=== PATIENT | female | born 1985 | race Caucasian/White ===

== ENCOUNTER 2024-05-28 18:38 | Inpatient (IN) ==
--- OUTSIDE RECORDS SUMMARY | 2024-05-28 18:42 | External Medical Summary | Summary of Care ---
Author Name Unknown Organization [facility] Address [address] [place] [address] Phone [phone] Care Team Providers Care Inspector General Name Role Phone Manjit Dailey MD Primary Care Provider [phone] Reason for Visit * Reason Comments Eye Problem Sinus Problem Encounter Details Date Type Department Care Team (Latest Contact Info) Description 02/13/2024 5:30 PM EDT [facility] [place] [address] [id number] Jayda Andrea PA-C [address] [phone] Acute bacterial conjunctivitis of right eye*; Viral sinusitis Allergies Active Allergy Reactions Criticality Noted Date Comments Iodide Hives Medium 01/08/2011 Latex Itching Low 01/08/2011 Shellfish Allergy 12/06/2015 documented as of this encounter (statuses as of 02/13/2024) Medications Medication Sig Dispensed Refills Start Date End Date Status diazePAM 2 MG Oral Tablet (Valium) Take 1 Tablet by mouth every 8 hours as needed for Other (Dizziness). 8 Tablet 0 09/06/2023 Active Additional Information Patient not taking.Reported on 02/13/2024 Erythromycin 5 MG/GM Ophthalmic OintmentIndications:A cute bacterial conjunctivitis of right eye Instill into the right eye 4 times a day for 10 days. Apply to affected eye(s) until redness and discharge resolved. 3.5 g 0 02/13/2024 02/23/2024 Active predniSONE 20 MG Oral Tablet (Deltasone)Indication s:Viral sinusitis Take 1 Tablet by mouth in the morning for 5 days. 5 Tablet 0 02/13/2024 02/18/2024 Active documented as of this encounter (statuses as of 02/13/2024) Active Problems Problem Noted Date Diagnosed Date Food insecurity 05/26/2021 Overview: Per [facility] Protocol Migraine without aura and wi thout status migrainosus, not intractable 09/13/2018 Overview: 08/2018 no papilledema, Family history of malignant neoplasm of breast 0 07/08/2017 Family history of ovarian cancer 07/08/2017 Increased risk of breast cancer 07/08/2017 Vitamin D deficiency 09/24/2015 Hyperinsulinemia 09/24/2015 Obesity, Class III, BMI 40-49.9 (morbid obesity) 09/13/2015 History of iron deficiency anemia 09/13/2015 Overview: Hemoglobin Results: HGB(g/dL) Radha Dt/Tm Resulted Value Status 09/01/18 7:59P 09/01/18 12.6 FINAL 03/25/18 2:02A 03/25/18 11.5* FINAL 06/12/17 9:25A 06/12/17 11.4* FINAL PCOS (polycystic ovarian syndrome) 09/13/2015 History of menorrhagia 09/11/2015 Submucous leiomyoma of uterus 09/11/2015 documented as of this encounter (statuses as of 02/13/2024) Resolved Problems Problem Noted Date Diagnosed Date Resolved Date BMI 40.0-44.9, adult 2015 017 Overview: Per Obesity protocol #1 Antepartum anemia 02/13/2011 04/28/2011 Overview: ICD-10 update of inactive term Encounter for supervision of other normal 01/08/2011 04/28/2011 Overview: Transfer of care at 23 wk from [place] ICD-10 update of inactive term Previous delivery, antepartum condition or complication 01/08/2011 04/28/2011 Overview: Will probably be repeat documented as of this encounter (statuses as of 02/13/2024) Immunizations Name Administration Dates Next Due Seasonal Influenza, PF, 6 M & above, IM , (FluLaval or Fluzone) 09/07/2018 documented as of this encounter Social History Tobacco Use Types Packs/Day Years Used Date Smoking Tobacco: Never Smokeless Tobacco: Never Tobacco Cessation:Counseling Given: Not Answered Alcohol Use Standard Drinks/Week Comments No 0 (1 standard drink = 0.6 oz pur e alcohol) PHQ-2 Answer Date Recorded PHQ-2 Score 2 09/07/2018 Sex and Gender Information Value Date Recorded Sex Assigned at Not on file Gender Identity Not on file Sexual Orientation Not on file Job Start Date Occupation Industry Not on file Not on file Not on file documented as of this encounter Last Filed Vital Signs Vital Sign Reading Time Taken Comments Blood Pressure 112/68 02/13/2024 4:47 PM EDT Pulse 84 02/13/2024 4:47 PM EDT Temperature 37.5 C (99.5 F) 02/13/2024 4:47 PM ED T Respiratory Rate 18 02/13/2024 4:47 PM EDT Oxygen Saturation 98% 02/13/2024 4:47 PM EDT Inhaled Oxygen Concentration - - Weight 120.8 kg (266 lb 6.4 oz) 02/13/2024 4:47 PM EDT Height - - Body Mass Index 41.72 09/05/2023 8:30 PM EST documented in this encounter Patient Instructions * Patient Instructions* Jayda Andrea PA-C - 02/13/2024 4:53 PM EDT Apply erythromycin ophthalmic ointment four times daily for 7-10 days. Wash hands frequently, this is contagious. Wash and change pillow case multiple times this week. Take Prednisone 20 mg once daily for 5 days. Do not take in the evening. You can take Mucinex and Flonase over the counter. Return if you develop fever, worsening pain/redness/swelling, pain/redness/swelling around the eye. documented in this encounter Progress Notes * Jayda Andrea PA-C - 02/13/2024 4:49 PM EDT Images from the original note were not included. History of Present Illness Chief Complaint Patient presents with Eye Problem Sinus Problem 38 y/o female presents with congestion, runny nose, cough, right eye drainage that started this AM.Has tried OTC Izabel [place] cold and cough. Had a low grade fever today. Denies trauma or injury to eye. Woke up with eye crusted shut this AM. Wears glasses and occasionally wears contacts but has not worn contacts in weeks. Denies changes in vision, eye pain, photophobia, SOB, abd pain, N/V/D, LH,dizziness, or weakness. Past Medical History: Diagnosis Date Asthma, mild persistent Hyperinsulinemia 09/24/2015 Iron deficiency anemia 09/13/2015 Lupus ([facility]) 2016 Obesity, Class III, BMI 40-49.9 (morbid obesity) ([facility]) 09/13/2015 PCOS (polycystic ovarian syndrome) 09/13/2015 Submucous leiomyoma of uterus 09/11/2015 Vitamin D deficiency 09/24/2015 Current Medication List: diazePAM 2 MG Oral Tablet (Valium) Review of patient's allergies indicates: Allergen Reactions Iodide Hives Shellfish Allergy Latex Itching Review of Systems Constitutional: Positive for fever. Negative for chills. HENT: Positive for congestion and rhinorrhea. Eyes: Positive for discharge and redness. Negative for visual disturbance. Respiratory: Positive for cough. Negative for shortness of breath. Cardiovascular: Negative for chest pain. Gastrointestinal: Negative for abdominal pain, diarrhea, nausea and vomiting. Musculoskeletal: Negative for gait problem. Skin: Negative for rash. Neurological: Negative for weakness and headaches. Psychiatric/Behavioral: Negative for confusion. Physical Exam BP 112/68 | Pulse 84 | Temp 37.5 C (99.5 F) (Tympanic) | Resp 18 | Wt 120.8 kg (266 lb 6.4 oz) | LMP 02/12/2024 (Exact Date) | SpO2 98% | BMI 41.72 kg/m | BSA 2.39 m Physical Exam Vitals and nursing note reviewed. Constitutional: General: She is not in acute distress. Appearance: Normal appearance. She is not ill-appearing, toxic-appearing or diaphoretic. HENT: Head: Normocephalic and atraumatic. Right Ear: Ear canal normal. A middle ear effusion is present. Left Ear: Tympanic membrane and ear canal normal. Nose: Congestion and rhinorrhea present. Mouth/Throat: Mouth: Mucous membranes are moist. Pharynx: Oropharynx is clear. No oropharyngeal exudate or posterior oropharyngeal erythema. Eyes: General: Right eye: Discharge present. Extraocular Movements: Extraocular movements intact. Pupils: Pupils are equal, round, and reactive to light. Comments: Right conjunctival injection. No periorbital edema or erythema. No foreign body. Cardiovascular: Rate and Rhythm: Normal rate and regular rhythm. Pulmonary: Effort: Pulmonary effort is normal. No respiratory distress. Breath sounds: Normal breath sounds. No wheezing, rhonchi or rales. Musculoskeletal: General: Normal range of motion. Cervical back: Normal range of motion. Skin: General: Skin is warm and dry. Neurological: General: No focal deficit present. Mental Status: She is alert and oriented to person, place, and time. Psychiatric: Mood and Affect: Mood normal. Behavior: Behavior normal. Assessment and Plan Acute bacterial conjunctivitis of right eye - Erythromycin 5 MG/GM Ophthalmic Ointment; Instill into the right eye 4 times a day for 10 days. Apply to affected eye(s) until redness and discharge resolved. - RETURN TO WORK OR SCHOOL Viral sinusitis - predniSONE 20 MG Oral Tablet (Deltasone); Take 1 Tablet by mouth in the morning for 5 days. - RETURN TO WORK OR SCHOOL Wrap-Up Return if symptoms worsen or fail to improve. Given handout and instructions: Apply erythromycin ophthalmic ointment four times daily for 7-10 days. Wash hands frequently, this is contagious. Wash and change pillow case multiple times this week. Take Prednisone 20 mg once daily for 5 days. Do not take in the evening. You can take Mucinex and Flonase over the counter. Return if you develop fever, worsening pain/redness/swelling, pain/redness/swelling around the eye. Time: I spent a total of 10-19 minutes (exact time 10 mins) on the date of service in preparation, delivery, and documentation of the care provided to Jo-Ann Dumont excluding any time spent in the performance of separately billed services. documented in this encounter Nursing Notes * Lily Reis CMA - 02/13/2024 4:46 PM EDT Jo-Ann Dumont is a 38 year old female who presents to walk-in clinic today complaining of Chief Complaint Patient presents with Eye Problem Sinus Problem Main Symptoms: cough, congestion, runny nose, R eye drainage Cause: unknown How long: this morning Tried: Izabel Melissa cold and cough Pt accompanied by: self documented in this encounter Miscellaneous Notes * Pt Handout (on AVS) - Jayda Andrea PA-C - 02/13/2024 4:54 PM EDT Images from the original note were not included. [id number] Bacterial Conjunctivitis You have an infection in the membrane covering the white part of the eye. This part of the eye is called the conjunctiva. The infection is called conjunctivitis. The most common symptoms of conjunctivitis are a thick, puslike discharge from the eye, swollen eyelids, redness, eyelids sticking together upon awakening, and a gritty or scratchy feeling in the eye. Your infection was caused by bacteria. It may be treated with medicine. With treatment, the infection takes about 7 to 10 days to resolve. Home care Use prescribed antibiotic eye drops or ointment as directed to treat the infection. Apply a warm compress (towel soaked in warm water) to the affected eye 3 to 4 times a day. Do this just before applying medicine to the eye. Use a warm, wet cloth to wipe away crusting of the eyelids in the morning. You can also use an [id number] eyelid-specific wipe. This crusting is caused by mucus drainage during the night. You may also use saline irrigating solution or artificial tears to rinse away mucus in the eye. Don't put a patch over the eye. Wash your hands before and after touching the infected eye. This is to prevent spreading the infection to the other eye and to other people. Don't share your towels or washcloths with others. You may use acetaminophen or ibuprofen to control pain, unless another medicine was prescribed. Talk with your healthcare provider before using these medicines if you have chronic liver or kidney disease. Also talk with your provider if you have ever had a stomach ulcer or digestive bleeding. Don't wear contact lenses until your eyes have healed and all symptoms are gone. Follow-up care Follow up with your healthcare provider, or as advised. When to seek medical advice Call your healthcare provider right away if any of these occur: Worsening vision Increasing pain in the eye Increasing swelling or redness of the eyelid Redness spreading around the eye Last Reviewed Date: 08/18/202219991553-3587 [employer]. All rights reserved. This information is not intended as a substitute for professional medical care. Always follow your healthcare professional's instructions. * Pt Handout (on AVS) - Jayda Andrea PA-C - 02/13/2024 4:54 PM EDT Images from the original note were not included. [id number] Preventing Sinusitis Colds, flu, and allergies make it more likely for you to get sinusitis. Do your best to prevent sinusitis by preventing these problems. Do what you can to keep from getting colds and other infections. Stay away from things that cause allergies (allergens). Keep your sinuses as moist as you can. Air travel tip When traveling on an airplane, use saline nasal spray to keep your sinuses moist. Drink plenty of fluids. You may also want to take a decongestant before you get on the plane. Prevent colds Do what you can to prevent being exposed to colds and flu. When possible, take more time to rest when you feel like you're coming down with something. Practice correct handwashing. Wash your hands often. o Wash your hands often with soap and clean, running water. Scrub them for as long as it takes you to sing the "Happy Birthday" song from beginning to end, twice. This is especially important during cold and flu season. Try not to touch your face. o Use an alcohol-based hand enterprise security architect that contains at least 60% alcohol when you can?t wash your hands. Prevent lung infections. Ask your healthcare provider about the flu and pneumonia vaccines. Takesteps to prevent colds and other lung infections. Stay away from crowds during cold and flu season. Follow this advice for staying healthy: Eat balanced meals, exercise regularly, and get plenty of sleep. Stay away from allergens First find out what things you?re allergic to. Then take steps to stay away from allergens or irritants in the air, such as dust, pollution, and pollen. Wear a mask when you clean. Or think about hiring a house mother to help you stay away from dust. Stop smoking. If you need help stopping smoking, talk with your healthcare provider. Stay away from secondhand smoke and other irritants. Try to stay away from smoke, chemicals, fumes, and dust. Don?t let anyone smoke in your home. Stay indoors on smoggy days. Sit in the nonsmoking sections of restaurants. Don't go outdoors during peak pollution hours, such as jordan hour. Keep an air conditioner on during allergy season. Clean its filter regularly. If these actions don't work or your symptoms get worse, ask your healthcare provider about a referral to have an allergy evaluation. Or ask for a referral to see an business applications specialist. Boost moisture Keeping your sinuses moist makes your mucus thinner. This allows your sinuses to drain better. And this helps prevent infection. Ask your healthcare provider about these suggestions: Use a humidifier. Clean it often to remove any mold or mildew. Drink several glasses of water a day. Stay away from drinks, such as alcohol and coffee. Alcohol can cause sinus pressure and congestion. Coffee can dry out your sinus linings. Stay away from all types of smoke, which also dries out sinus linings. This includes tobacco smoke and chemical smoke in workplace settings. Use saltwater rinses. Last Reviewed Date: 12/17/202319992273-0787 [employer]. All rights reserved. This information is not intended as a substitute for professional medical care. Always follow your healthcare professional's instructions. documented in this encounter Plan of Treatment Health Maintenance Due Date Last Done Comments DTaP,Tdap,and Td Vaccines (1 - Tdap) 2006 Hepatitis B (1 of 3 - 19+ 3-dose series) 2006 HPV/Co-Test 2017 Cervical Cancer Screening 07/10/2018 Pap Smear 07/10/2018 07/10/2015, 07/10/2015 Depression Screening 09/07/2019 09/07/2018 COVID-19 Vaccine ( season) 2023 Influenza Vaccine (FLU shot) (Season Ended) 2024 08/18/2019, 09/07/2018 Diabetes Screening 09/05/2026 09/05/2023, 0 11/28/2022, 12/08/2021, Additional history exists GARDASIL-HPV IMMUNIZATION SERIES Aged Out No longer eligible based on patient's age to complete this topic MENINGOCOCCAL (MENACTRA/MENVEO) Aged Out No longer eligible based on patient's age to complete this topic Pneumococcal Vaccine: Pediatrics (0 to 5 Years) and At-Risk Patients (6 to 64 Years) Aged Out No longer eligible based on patient's age to complete this topic documented as of this encounter Medical Devices Not on filedocumented as of this encounter Visit Diagnoses Diagnosis Acute bacterial conjunctivitis of right eye- Primary Viral sinusitis Unspecified sinusitis (chronic) documented in this encounter Care Teams Inspector General Relationship Specialty Start Date End Date Manjit Dailey MD [address] [facility] [place] [id number] PCP - General Family Medicine 11/29/22 documented as of this encounter
--- NOTE | 2024-05-28 18:54 | Emergency Department Note ---
Impression & Plan Chest pain, Unresponsive episode, Anemia ED Provider Note NAME: BETI AKERS AGE: 38 SEX: F : 1985 ARRIVES VIA: Ambulance INFORMANT: Patient ED PROVIDER(S): Ranjan Jha DO CHIEF COMPLAINT: Syncope HPI: Patient is a 38-year-old female who presents to the ER for syncopal episode. Patient is complaining of left shoulder pain and a headache. She notes that she has no complaints at this time but the left shoulder pain. History is mainly obtained from the son who is present at bedside who notes that patient was sitting on the edge of the couch complaining of chest pain and shoulder pain. He notes last time this occurred patient passed out. He did see her pass out and fall to the ground from a sitting position. He notes that there is no shaking or seizure activity. Patient did wake back up and was brought in by EMS. She denies any focal weakness in the arms or legs but does complain of left shoulder pain. ADDITIONAL HISTORY OBTAINED: Per HPI Chronic Medical/Social Conditions Affecting Care: Per HPI PAST MEDICAL HISTORY:See Below PAST SURGICAL HISTORY:See Below FAMILY HISTORY:See Below SOCIAL HISTORY:See Below HOME MEDICATIONS:See Below ALLERGIES:See Below VITALS:See Below PHYSICAL EXAMINATION: GENERAL: Sitting up in bed, alert, well appearing, well nourished, no distress, non-toxic EYE EXAM: normal conjunctiva. PERRL and EOM's grossly intact. HEAD: NC/AT OROPHARYNX: no exudate, no erythema, lips, buccal mucosa, and tongue normal and mucous membranes are moist NECK: supple, no nuchal rigidity, no adenopathy, non-tender LUNGS: Clear to auscultation. Normal chest wall mechanics HEART: no murmurs, S1 normal and S2 normal ABDOMEN: abdomen soft, non-tender, normo-active bowel sounds, no masses, no rebound or guarding. BACK: Back is symmetrical on inspection and there is no deformity, no midline tenderness, no CVA tenderness. SKIN: no rashes and no bruising UPPER EXTREMITIES: Flexion-extension right shoulder elbow wrist and grasp is intact. Tenderness over the left humeral head. No tenderness throughout the remainder of the humerus including the mid or distal humerus. No tenderness throughout the elbow or forearm wrist or hand. Flexion-extension the elbow and wrist is intact. Radial pulse 2 out of 4 bilaterally. Skins intact. Gross station intact. LOWER EXTREMITIES: No pitting edema. NEURO EXAM: Normal sensorium, cranial nerves II-XII intact, normal speech, no weakness of arms, no weakness of legs. MEDICAL DECISION MAKING: Patient is a 38-year-old female who presents ER for above-stated complaint. IV was established medicos obtained. Labs show no significant leukocytosis. Mild anemia at 9.4. D-dimer was negative and low risk patient. BMP with LFTs bilirubin and lipase was unremarkable. Troponin was negative. Patient is syncopal episode prior to having chest pain. Otherwise fairly low risk. There is no reported seizure activity. CT head was negative. Chest x-ray was unremarkable. Shoulder x-ray was unremarkable. With the chest pain and syncope she was discussed with the hospitalist for further evaluation management treatment. Consults/Care Managements Discussions: Per [facility] Triage Nursing notes reviewed. Limited review of prior medical records performed Vital Signs: reviewed and remarkable for no significant abnormalities Differential diagnosis: Differential diagnoses includes but is not limited to toxic, metabolic, infectious, traumatic, cardiac, neurologic, hematologic, psychiatric and inflammatory etiologies. ER treatment provided: See below Diagnostics interpreted by me include EKG and cardiac monitoring as listed below: -Cardiac Monitoring: An order was placed for continuous cardiac monitoring. The monitor shows a rate of 80 with sinus rhythm. -ECG: Sinus rhythm rate 78 Normal axis T wave inversions in the inferior leads T wave inversions in V1 through V3 with T wave flattening V4 through V6 QTc 467 -Laboratory studies:Interpreted by me as stated above in MDM and shown below. Imaging studies: Xrays: As interpreted by me: Portable AP upright 1 view of the chest shows no focal trait X-ray of the shoulder shows no acute fracture CTs show: CT head was negative Procedures: None Critical Care: None Past Med/Surg History Problem List (Updated 05/28/24 @ 23:41 by Ranjan Jha DO) Anemia (Acute) Chest pain (Acute) Unresponsive episode (Acute) Social History Smoking Status: Never smoker Preferred Language: Stateless Feels Safe at Home: Yes Allergies Allergies Allergy/AdvReac Type Severity Reaction Status Date / Time iodine Allergy Intermediate Hives Verified 05/28/24 19:41 latex Allergy Intermediate Hives Verified 05/28/24 19:41 Home Meds Home Medications Medication Instructions Recorded Confirmed acetaminophen 500 mg tablet 500 - 1,000 mg PO Q6H PRN 09/07/23 05/28/24 PAIN/FEVER naproxen sodium 220 mg tablet 220 mg PO BID PRN Pain 09/07/23 05/28/24 (Aleve) aspirin 81 mg tablet,delayed 81 mg PO Q OTHER DAY 05/28/24 05/28/24 release Results & Data (ED) Vital Signs Vital Signs - 24 hr 05/28/24 18:45 05/28/24 18:51 05/28/24 19:20 Temperature 37.4 C Temperature Source Oral Pulse Rate 83 73 Pulse Rate [Apical] 72 Pulse Rhythm Pulse Rhythm [Apical] Regular Pulse Strength [Apical] Normal Respiratory Rate 23 23 Respiratory Effort / Characteristics Non-Labored Spontaneous Non-Labored Spontaneous Respiratory Depth Normal Normal Respiratory Pattern Regular Blood Pressure 137/87 Blood Pressure [Right Arm] 99/76 L Blood Pressure Mean 103 Blood Pressure Mean [Right Arm] 83 Pulse Oximetry 97 99 Oxygen Delivery Method Room Air Room Air Sepsis Recent Fever Within 48 Hours No Sepsis New/Unexplained Change in Mental Status N/A Sepsis Action Taken by Nursing No Action Required 05/28/24 19:20 05/28/24 19:36 05/28/24 20:27 Temperature Temperature Source Pulse Rate 68 79 79 Pulse Rate [Apical] Pulse Rhythm Regular Pulse Rhythm [Apical] Pulse Strength [Apical] Respiratory Rate 16 20 15 Respiratory Effort / Characteristics Respiratory Depth Respiratory Pattern Blood Pressure 120/72 100/76 Blood Pressure [Right Arm] Blood Pressure Mean 88 84 Blood Pressure Mean [Right Arm] Pulse Oximetry 99 98 100 Oxygen Delivery Method Room Air Sepsis Recent Fever Within 48 Hours Sepsis New/Unexplained Change in Mental Status Sepsis Action Taken by Nursing Laboratory Data 05/28/24 18:49 05/28/24 18:49 Lab Results 05/28/24 Range/Units 18:49 WBC 9.39 (4.8-10.8) K/ul RBC 4.17 L (4.20-5.40) M/uL Hgb 9.4 L (12.0-16.0) g/dl Hct 30.7 L (37.0-47.0) % MCV 73.6 L (80.0-100.0) fL MCH 22.5 L (25.0-34.0) pg MCHC 30.6 L (32.0-36.0) g/dL RDW Std Deviation 43.6 (36.4-46.3) fL RDW Coeff of Alida 16.7 H (11.5-14.5) % Plt Count 431 H (130-400) K/uL MPV 9.1 L (9.4-12.4) fL Immature Gran % (Auto) 0.3 % Neut % (Auto) 64.2 % Lymph % (Auto) 27.8 % [place] % (Auto) 6.0 % Eos % (Auto) 1.2 % Baso % (Auto) 0.5 % Neut # (Auto) 6.03 (1.40-6.50) K/uL Lymph # (Auto) 2.61 (1.20-3.40) K/uL [place] # (Auto) 0.56 (0.11-0.59) K/uL Eos # (Auto) 0.11 (0.00-0.50) K/uL Baso # (Auto) 0.05 (0.00-0.20) K/uL Immature Gran # (Auto) 0.03 (0.01-0.20) K/uL D-Dimer 460 (0-500) ug/L FEU Sodium 137 (136-145) mmol/L Potassium 3.7 (3.5-5.1) mmol/L Chloride 107 (98-107) mmol/L Carbon Dioxide 24 (21-32) mmol/L Anion Gap 6 (3-11) BUN 10 (6-23) mg/dl Creatinine 0.76 (0.6-1.2) mg/dl Est Cr Clr Drug Dosing 140.2 ml/min Est GFR ( Amer) 117.0 ml/min Est GFR (Non-Af Amer) 100.9 ml/min BUN/Creatinine Ratio 13.2 (10-20) Glucose 98 (70-99(Fasting)) mg/dl Calcium 8.7 (8.6-10.3) mg/dl Total Bilirubin 0.3 (0.2-1.0) mg/dl AST 12 L (13-39) U/L ALT 11 (7-52) U/L Alkaline Phosphatase 59 (34-104) U/L Troponin I High Sens 2.7 (0-14) pg/ml Total Protein 7.2 (6.0-8.3) gm/dl Albumin 4.0 (3.4-5.0) gm/dl Globulin 3.2 (2.5-4.0) gm/dl Albumin/Globulin Ratio 1.3 (0.9-2) Lipase 9 L (11-82) U/L Administered Medications Acetaminophen (Acetaminophen 325 Mg Tab) 650 mg PO Q4H PRN PRN Reason: Pain or Fever Stop: 06/27/24 22:03 Last Admin: 05/28/24 23:16 Dose: 650 mg Documented By: GAGE Sodium Chloride (Nss) 1,000 mls @ 100 mls/hr IV .Q10H ANITA Stop: 06/27/24 22:03 Last Admin: 05/28/24 23:00 Dose: 100 mls/hr Documented By: GAGE Discontinued Medications Thiamine HCl 400 mg/ Sodium (Chloride) 54 mls @ 108 mls/hr IV NOW STA Stop: 05/28/24 22:48 Last Admin: 05/28/24 23:00 Dose: 108 mls/hr Documented By: GAGE Ketorolac Tromethamine (Ketorolac Tromethamine 15 Mg/Ml Vial) 15 mg IV NOW ONE Stop: 05/28/24 18:49 Last Admin: 05/28/24 19:18 Dose: 15 mg Documented By: ELICEO Lorazepam (Lorazepam 0.5 Mg Tab) 0.5 mg PO NOW STA Stop: 05/28/24 22:45 Last Admin: 05/28/24 23:16 Dose: 0.5 mg Documented By: GAEG Imaging Data Radiologist's Impression: Chest X-Ray 05/28/24 18:47 XR chest 1V portable CLINICAL HISTORY: Chest pain, nonspecific COMPARISON STUDY: Chest radiograph September 07, 2023. FINDINGS: Lung volumes are normal. Lungs are clear. There is no pneumothorax or pleural effusion. Cardiac size is normal. Mediastinal contours are normal. There is no evidence for pulmonary edema. IMPRESSION: No acute cardiopulmonary findings. ACT 112: Negative or not required by law. Electronically signed by: Cole Matt M.D. 05/28/2024 7:[address] 05/28/24 18:48 CT OF THE HEAD WITHOUT CONTRAST CLINICAL HISTORY: fall COMPARISON STUDY: No previous studies for comparison. CT DOSE: 547.75 mGy.cm TECHNIQUE: Helical axial images of the head were obtained without IV contrast. Automated exposure control was utilized for the study. A dose lowering technique was utilized adhering to the principles of ALARA. FINDINGS: No acute intracranial hemorrhage, midline shift or mass effect is present. The ventricular system is unremarkable. The basal cisterns are patent. No extra-axial collections are present. There are no findings to suggest acute dural sinus thrombosis or acute territorial infarct. No significant calvarial abnormalities are present. Visualized portions of the sinuses and mastoid air cells are clear. IMPRESSION: 1. No acute intracranial findings. 2. No calvarial fractures. ACT 112: Negative or not required by law. Electronically signed by: Cole Matt M.D. 05/28/2024 7:20 PM Shoulder X-Ray 05/28/24 18:48 XR shoulder LT min 2V routine CLINICAL HISTORY: Left shoulder pain. COMPARISON: None FINDINGS: Alignment of the left shoulder is anatomic. There is no acute fracture. Joint spaces are preserved. There are no osseous lesions. IMPRESSION: No fracture or dislocation within the left shoulder. ACT 112: Negative or not required by law. Electronically signed by: Cole Matt M.D. 05/28/2024 7:23 PM Discharge Plan Visit Data Chief Complaint: Syncope ED Provider: Ranjan Jha Discharge Problem: Chest pain, Unresponsive episode, Anemia Patient Disposition: Admitted As Inpatient Discharge Instructions Interventions: ED Discharge Assessment Last Done: 05/28/24 21:38 Discharge Problem: Chest pain Qualifiers: Chest pain type: unspecified Qualified Code(s): R07.9 - Chest pain, unspecified Anemia Qualifiers: Anemia type: unspecified type Qualified Code(s): D64.9 - Anemia, unspecified
[2024-05-28 19:05] LABS: Basophils # (auto) 0.05 K/uL (0.00-0.20); Basophils % (auto) 0.5 %; Eosinophils # (auto) 0.11 K/uL (0.00-0.50); Eosinophils % (auto) 1.2 %; Hematocrit (blood only) 30.7 % (37.0-47.0); Hemoglobin 9.4 g/dl (12.0-16.0); Immature Granulocytes # (auto) 0.03 K/uL (0.01-0.20); Immature Granulocytes % (auto) 0.3 %; Lymphocytes # (auto) 2.61 K/uL (1.20-3.40); Lymphocytes % (auto) 27.8 %; Mean Corpuscular Hemoglobin 22.5 pg (25.0-34.0); Mean Corpuscular Hgb Conc 30.6 g/dL (32.0-36.0); Mean Corpuscular Volume 73.6 fL (80.0-100.0); Mean Platelet Volume 9.1 fL (9.4-12.4); Monocytes # (auto) 0.56 K/uL (0.11-0.59); Neutrophils # (auto) 6.03 K/uL (1.40-6.50); Neutrophils % (auto) 64.2 %; Platelet Count 431 K/uL (130-400); RDW Coefficient of Variation 16.7 % (11.5-14.5); RDW Standard Deviation 43.6 fL (36.4-46.3); Red Blood Count 4.17 M/uL (4.20-5.40); White Blood Count 9.39 K/ul (4.8-10.8)
[2024-05-28] MEDS: KETOROLAC TROMETHAMINE 15 MG/ML VIAL IV ONE (19:18)
[2024-05-28 19:20] LABS: Albumin Globulin Ratio 1.3 (0.9-2); BUN Creatinine Ratio 13.2 (10-20); Bilirubin,Total 0.3 mg/dl (0.2-1.0); Calcium 8.7 mg/dl (8.6-10.3); Creatinine Clr Calc Pharmacy 140.2 ml/min; Est GFR (Non-African American) 100.9 ml/min; Globulin 3.2 gm/dl (2.5-4.0); Potassium 3.7 mmol/L (3.5-5.1); Total Protein 7.2 gm/dl (6.0-8.3)
--- NOTE | 2024-05-28 19:21 | CT Scan Report ---
CT OF THE HEAD WITHOUT CONTRAST CLINICAL HISTORY: fall COMPARISON STUDY: No previous studies for comparison. CT DOSE: 547.75 mGy.cm TECHNIQUE: Helical axial images of the head were obtained without IV contrast. Automated exposure con trol was utilized for the study. A dose lowering technique was utilized adhering to the principles o f ALARA. FINDINGS: No acute intracranial hemorrhage, midline shift or mass effect is present. The ventricular system is unremarkable. The basal cisterns are patent. No extra-axial collections are present. There are no findings to suggest acute dural sinus thrombosis or acute territorial infarct. No significant calvarial abnormalities are present. Visualized portions of the sinuses and mastoid air cells are shirlene ar. IMPRESSION: 1. No acute intracranial findings. 2. No calvarial fractures. ACT 112: Negative or not required by law. Electronically signed by: Cole Matt M.D. 05/28/2024 7:20 PM
--- NOTE | 2024-05-28 19:23 | XRay Report ---
XR chest 1V portable CLINICAL HISTORY: Chest pain, nonspecific COMPARISON STUDY: Chest radiograph September 07, 2023. FINDINGS: Lung volumes are normal. Lungs are clear. There is no pneumothorax or pleural effusion. Car diac size is normal. Mediastinal contours are normal. There is no evidence for pulmonary edema. IMPRESSION: No acute cardiopulmonary findings. ACT 112: Negative or not required by law. Electronically signed by: Cole Matt M.D. 05/28/2024 7:22 PM
--- NOTE | 2024-05-28 19:24 | XRay Report ---
XR shoulder LT min 2V routine CLINICAL HISTORY: Left shoulder pain. COMPARISON: None FINDINGS: Alignment of the left shoulder is anatomic. There is no acute fracture. Joint spaces are p reserved. There are no osseous lesions. IMPRESSION: No fracture or dislocation within the left shoulder. ACT 112: Negative or not required by law. Electronically signed by: Cole Matt M.D. 05/28/2024 7:23 PM
[2024-05-28 19:26] LABS: Troponin I High Sensitivity 2.7 pg/ml (0-14)
[2024-05-28 19:28] LABS: D Dimer 460 ug/L FEU (0-500)
--- NOTE | 2024-05-28 21:21 | History & Physical Report ---
Date of Service May 28, 2024 Assessment & Plan (1) Unresponsive episode: Plan: 38-year-old female with past medical history significant for PCOS, hyperinsulinemia, obesity, vitamin D deficiency, submucous leiomyoma of uterus, history of migraine, history of menorrhagia, history of iron deficiency anemia, family history of breast cancer, family history of ovarian cancer comes because of unresponsive episode. Patient does not remember anything. She states her son found her in the house on the floor. She numbers going for a bike ride couple of hours prior to that. Do not remember coming back to the house. Patient states her son told her when he tried to wake her up,she woke up a couple of minutes later and again she felt dizzy and she blacked out for for another 10 minutes. EMS was called and again she was aroused and patient states after she was aroused was confused for about half an hour and then back to normal. No biting of her tongue and no incontinence. Patient states she had a similar episode in the past but not as long as this time. Has some headache. No blurred visions. No earache or runny nose or sore throat. No cough. No difficulty swallowing. Has some chest discomfort mostly in the left clavicular and shoulder region. No shortness of breath. No nausea. No abdominal pain. Normal bowel and bladder movements. Denies bloody or black stools. No recent heavy menses.Micturating okay. Prior to the episode she was ambulating fine and climbing steps fine. Currently hemodynamics are okay and resting comfortably. Unresponsive episode Currently alert and oriented CT head okay Hemodynamics okay D-dimer okay Patient does not remember the episode Possible transient global amnesia Possible seizures Will do MRI scan, EEG Telemonitoring Dose of IV thiamine Neurochecks Close monitor Neurology consult in a.m. Chest discomfort Mostly left clavicle and shoulder region Chest x-ray and shoulder x-ray okay Troponin okay Episode could be possible syncope Will follow serial cardiac enzymes and echo orthostatics Telemetry Consult cardiology in a.m. Anemia Microcytic anemia Hemoglobin 9.4 Seems somewhat chronic Will check stool for Hemoccult Iron studies, vitamin B12 levels Needs follow-up DVT prophylaxis SCDs for now Disposition Telemetry Full code. History of Present Illness Chief Complaint: Unresponsive episode Primary Care Provider: NO PCP 38-year-old female with past medical history significant for PCOS, hyperinsulinemia, obesity, vitamin D deficiency, submucous leiomyoma of uterus, history of migraine, history of menorrhagia, history of iron deficiency anemia, family history of breast cancer, family history of ovarian cancer comes because of unresponsive episode. Patient does not remember anything. She states her son found her in the house on the floor. She numbers going for a bike ride couple of hours prior to that. Do not remember coming back to the house. Patient states her son told her when he tried to wake her up,she woke up a couple of minutes later and again she felt dizzy and she blacked out for for another 10 minutes. EMS was called and again she was aroused and patient states after she was aroused was confused for about half an hour and then back to normal. No biting of her tongue and no incontinence. Patient states she had a similar episode in the past but not as long as this time. Has some headache. No blurred visions. No earache or runny nose or sore throat. No cough. No difficulty swallowing. Has some chest discomfort mostly in the left clavicular and shoulder region. No shortness of breath. No nausea. No abdominal pain. Normal bowel and bladder movements. Denies bloody or black stools. No recent heavy menses.Micturating okay. Prior to the episode she was ambulating fine and climbing steps fine. Currently hemodynamics are okay and resting comfortably. Past medical history. As mentioned above Past surgical history. . Ligation of oviducts. Social history. No smoking. No alcohol use. No drug use. Family history. Maternal grandmother had breast cancer and ovarian cancer in her 40s. Mother had breast cancer age 31. Mother had ovarian cancer in her early 40s. Mother had thyroid cancer. Sister had thyroid cancer. Allergies Allergy/AdvReac Type Severity Reaction Status Date / Time iodine Allergy Intermediate Hives Verified 05/28/24 19:41 latex Allergy Intermediate Hives Verified 05/28/24 19:41 Home Medications Medication Instructions Recorded Confirmed Type acetaminophen 500 mg tablet 500 - 1,000 mg PO Q6H PRN 09/07/23 05/28/24 History PAIN/FEVER naproxen sodium 220 mg tablet 220 mg PO BID PRN Pain 09/07/23 05/28/24 History (Aleve) aspirin 81 mg tablet,delayed 81 mg PO Q OTHER DAY 05/28/24 05/28/24 History release Past Med/Surg History Problem List (Updated 05/28/24 @ 23:41 by Ranjan Jha DO) Anemia (Acute) Chest pain (Acute) Unresponsive episode (Acute) Social History Smoking Status: Never smoker Hx Alcohol Use: No Hx Substance Use: Yes Last Used Substance: Days (ago) Last Used Substance Other:: 1 week ago Preferred Language: Vincentian Communication Ability: Effective 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 ENT- oropharynx clear Neck- supple, no JVD. Lungs- clear to auscultation no wheezing or crackles Heart- regular rate and rhythm; no murmur, no gallop. Abdomen- normal bowel sounds, soft, nontender, no distension. Extremities- no pretibial edema, no erythema seen Neuro- alert, oriented PERRL, no facial palsy; no dysarthria; motor 5/5 bilaterally; no pronator drift, sensations and positions sense intact Skin- warm & dry Results & Data Results & Data Vital Signs (Past 12 Hours) Vital Signs Temp Pulse Pulse Resp BP BP Pulse Ox 05/28/24 20:27 79 15 100/76 100 05/28/24 19:36 79 20 120/72 98 05/28/24 19:20 68 16 99 05/28/24 19:20 72 23 99/76 L 99 05/28/24 18:51 37.4 C 73 23 137/87 97 05/28/24 18:45 83 O2 Del Method 05/28/24 20:27 05/28/24 19:36 05/28/24 19:20 Room Air 05/28/24 19:20 Room Air 05/28/24 18:51 Room Air 05/28/24 18:45 Diagnostic Findings Laboratory Results WBC 9.39 K/ul (4.8-10.8) 05/28/24 18:49 RBC 4.17 M/uL (4.20-5.40) L 05/28/24 18:49 Hgb 9.4 g/dl (12.0-16.0) L 05/28/24 18:49 Hct 30.7 % (37.0-47.0) L 05/28/24 18:49 MCV 73.6 fL (80.0-100.0) L 05/28/24 18:49 MCH 22.5 pg (25.0-34.0) L 05/28/24 18:49 MCHC 30.6 g/dL (32.0-36.0) L 05/28/24 18:49 RDW Std Deviation 43.6 fL (36.4-46.3) 05/28/24 18:49 RDW Coeff of Alida 16.7 % (11.5-14.5) H 05/28/24 18:49 Plt Count 431 K/uL (130-400) H 05/28/24 18:49 MPV 9.1 fL (9.4-12.4) L 05/28/24 18:49 Immature Gran % (Auto) 0.3 % 05/28/24 18:49 Neut % (Auto) 64.2 % 05/28/24 18:49 Lymph % (Auto) 27.8 % 05/28/24 18:49 [place] % (Auto) 6.0 % 05/28/24 18:49 Eos % (Auto) 1.2 % 05/28/24 18:49 Baso % (Auto) 0.5 % 05/28/24 18:49 Neut # (Auto) 6.03 K/uL (1.40-6.50) 05/28/24 18:49 Lymph # (Auto) 2.61 K/uL (1.20-3.40) 05/28/24 18:49 [place] # (Auto) 0.56 K/uL (0.11-0.59) 05/28/24 18:49 Eos # (Auto) 0.11 K/uL (0.00-0.50) 05/28/24 18:49 Baso # (Auto) 0.05 K/uL (0.00-0.20) 05/28/24 18:49 Immature Gran # (Auto) 0.03 K/uL (0.01-0.20) 05/28/24 18:49 D-Dimer 460 ug/L FEU (0-500) 05/28/24 18:49 Sodium 137 mmol/L (136-145) 05/28/24 18:49 Potassium 3.7 mmol/L (3.5-5.1) 05/28/24 18:49 Chloride 107 mmol/L (98-107) 05/28/24 18:49 Carbon Dioxide 24 mmol/L (21-32) 05/28/24 18:49 Anion Gap 6 (3-11) 05/28/24 18:49 BUN 10 mg/dl (6-23) 05/28/24 18:49 Creatinine 0.76 mg/dl (0.6-1.2) 05/28/24 18:49 Est Cr Clr Drug Dosing 140.2 ml/min 05/28/24 18:49 Est GFR ( Amer) 117.0 ml/min 05/28/24 18:49 Est GFR (Non-Af Amer) 100.9 ml/min 05/28/24 18:49 BUN/Creatinine Ratio 13.2 (10-20) 05/28/24 18:49 Glucose 98 mg/dl (70-99(Fasting)) 05/28/24 18:49 Calcium 8.7 mg/dl (8.6-10.3) 05/28/24 18:49 Total Bilirubin 0.3 mg/dl (0.2-1.0) 05/28/24 18:49 AST 12 U/L (13-39) L 05/28/24 18:49 ALT 11 U/L (7-52) 05/28/24 18:49 Alkaline Phosphatase 59 U/L (34-104) 05/28/24 18:49 Troponin I High Sens 2.7 pg/ml (0-14) 05/28/24 18:49 Total Protein 7.2 gm/dl (6.0-8.3) 05/28/24 18:49 Albumin 4.0 gm/dl (3.4-5.0) 05/28/24 18:49 Globulin 3.2 gm/dl (2.5-4.0) 05/28/24 18:49 Albumin/Globulin Ratio 1.3 (0.9-2) 05/28/24 18:49 Lipase 9 U/L (11-82) L 05/28/24 18:49 Impressions Chest X-Ray 05/28/24 18:47 XR chest 1V portable CLINICAL HISTORY: Chest pain, nonspecific COMPARISON STUDY: Chest radiograph September 07, 2023. FINDINGS: Lung volumes are normal. Lungs are clear. There is no pneumothorax or pleural effusion. Cardiac size is normal. Mediastinal contours are normal. There is no evidence for pulmonary edema. IMPRESSION: No acute cardiopulmonary findings. ACT 112: Negative or not required by law. Electronically signed by: Cole Matt M.D. 05/28/2024 7:[address] 05/28/24 18:48 CT OF THE HEAD WITHOUT CONTRAST CLINICAL HISTORY: fall COMPARISON STUDY: No previous studies for comparison. CT DOSE: 547.75 mGy.cm TECHNIQUE: Helical axial images of the head were obtained without IV contrast. Automated exposure control was utilized for the study. A dose lowering technique was utilized adhering to the principles of ALARA. FINDINGS: No acute intracranial hemorrhage, midline shift or mass effect is present. The ventricular system is unremarkable. The basal cisterns are patent. No extra-axial collections are present. There are no findings to suggest acute dural sinus thrombosis or acute territorial infarct. No significant calvarial abnormalities are present. Visualized portions of the sinuses and mastoid air cells are clear. IMPRESSION: 1. No acute intracranial findings. 2. No calvarial fractures. ACT 112: Negative or not required by law. Electronically signed by: Cole Matt M.D. 05/28/2024 7:20 PM Shoulder X-Ray 05/28/24 18:48 XR shoulder LT min 2V routine CLINICAL HISTORY: Left shoulder pain. COMPARISON: None FINDINGS: Alignment of the left shoulder is anatomic. There is no acute fracture. Joint spaces are preserved. There are no osseous lesions. IMPRESSION: No fracture or dislocation within the left shoulder. ACT 112: Negative or not required by law. Electronically signed by: Cole Matt M.D. 05/28/2024 7:23 PM Code Status & VTE Plan VTE Prophylaxis Plan VTE Prophylaxis will be ordered: Yes
[2024-05-28] MEDS ORDERED: POLYETHYLENE (MIRALAX) 17 GM PACK PO PRN (22:04)
[2024-05-28] MEDS ORDERED: NITROGLYCERIN SL 0.4 MG/TAB TAB SL PRN (22:04)
[2024-05-28] MEDS: THIAMINE HCL 400 MG in SODIUM CHLORIDE 0.9% 50 ML IV STA (23:00)
[2024-05-28] MEDS: SODIUM CHLORIDE 0.9% 1,000 ML IV SCH (23:00)
[2024-05-28] MEDS: LORazepam 0.5 MG TAB PO STA (23:16)
[2024-05-28] MEDS: ACETAMINOPHEN 325 MG TAB PO PRN (23:16)
[2024-05-29] MEDS: GADOBUTROL 30ML VIAL IV ONE (00:01)
--- NOTE | 2024-05-29 01:47 | Magnetic Resonance Report ---
Exam(s): MRI HEAD W/WO Contrast IV Amt: 12cc gadavist EXAM: MR Head Without and With Intravenous Contrast CLINICAL HISTORY: Reason for exam: unreponsive episode. TECHNIQUE: Magnetic resonance images of the head/brain without and with intravenous contrast in multiple planes. CONTRAST: Patient received 12cc gadavist of IV contrast COMPARISON: CT brain: 05/28/2024 FINDINGS: Diagnostic sensitivity is reduced by the absence of IV contrast. Brain: There is no restricted diffusion to suggest acute infarction.. No intracranial hemorrhage, mass-effect or midline shift. FLAIR imaging demonstrated minimal periventricular signal hyperintensity. On postcontrast images no abnormal intracranial enhancement is evident. Ventricles: Unremarkable. No ventriculomegaly. Normal void signal is present within the carotid and basilar arteries. There are no extra- axial fluid collections. Bones/joints: Unremarkable. No acute fracture. Sinuses: Unremarkable as visualized. No acute sinusitis. A 1 cm mucosal retention cyst in the right maxillary sinus. Mastoid air cells: Unremarkable as visualized. No mastoid effusion. Orbits: Unremarkable as visualized. . IMPRESSION: No acute CVA or enhancing intracranial abnormality noted. . Electronically signed by: Radha Woody MD, DABR 05/29/24 01:46 AM
[2024-05-29 05:42] LABS: Basophils # (auto) 0.05 K/uL (0.00-0.20); Basophils % (auto) 0.8 %; Eosinophils # (auto) 0.15 K/uL (0.00-0.50); Eosinophils % (auto) 2.3 %; Hematocrit (blood only) 28.1 % (37.0-47.0); Hemoglobin 8.6 g/dl (12.0-16.0); Immature Granulocytes # (auto) 0.02 K/uL (0.01-0.20); Immature Granulocytes % (auto) 0.3 %; Lymphocytes # (auto) 2.64 K/uL (1.20-3.40); Lymphocytes % (auto) 40.3 %; Mean Corpuscular Hemoglobin 22.4 pg (25.0-34.0); Mean Corpuscular Hgb Conc 30.6 g/dL (32.0-36.0); Mean Corpuscular Volume 73.2 fL (80.0-100.0); Mean Platelet Volume 9.1 fL (9.4-12.4); Monocytes # (auto) 0.46 K/uL (0.11-0.59); Neutrophils # (auto) 3.23 K/uL (1.40-6.50); Neutrophils % (auto) 49.3 %; Platelet Count 378 K/uL (130-400); RDW Coefficient of Variation 16.7 % (11.5-14.5); Red Blood Count 3.84 M/uL (4.20-5.40); White Blood Count 6.55 K/ul (4.8-10.8)
[2024-05-29 06:01] LABS: BUN Creatinine Ratio 13.2 (10-20); Calcium 7.9 mg/dl (8.6-10.3); Chol HDL Ratio 3.9 (0-5); Creatinine Clr Calc Pharmacy 138.8 ml/min; Est GFR (Non-African American) 100.9 ml/min; Magnesium 2.1 mg/dl (1.7-2.4); Potassium 3.6 mmol/L (3.5-5.1)
[2024-05-29 06:29] LABS: Folate (Folic Acid),Ser orPlas 11.57 ng/ml (>5.38)
[2024-05-29 07:39] LABS: Estimated Average Glucose 114 mg/dl; Hemoglobin A1C 5.6 % (4.5-5.6)
[2024-05-29] MEDS: CYANOCOBALAMIN (B-12) 500 MCG TABLET PO SCH (08:43)
[2024-05-29] MEDS: FOLIC ACID 1 MG TAB PO SCH (08:43)
[2024-05-29] MEDS: ASPIRIN 81 MG ECTAB PO SCH (08:44)
--- NOTE | 2024-05-29 10:42 | Neurology Consultation ---
Date of Consultation May 29, 2024 Assessment & Plan (1) Unresponsive episode: Recommend continued work up to include the following: Echocardiogram as part of complete workup CTA head & neck to eval cerebral vasculature Recommend Lumbar puncture to assess opening pressure Recommend send CSF studies as well to rule out RUBBER MIXER infection Recommend Ophthalmology to eval for IIH Continue frequent neurological assessments Obtain stat CT brain without contrast for any acute neurological decline Continue to monitor/control blood pressure & blood glucose closely Recommend monitor orthostatic vital signs frequently Continue to monitor telemetry closely Recommend ZioPatch at DC if no evidence of arrhythmia during inpatient monitoring Continue to monitor renal and hepatic function, keep euvolemic Metabolic workup should include hgbA1c, fasting lipids, homocysteine, TSH, D Dimer, RPR, urinalysis Ok from neurology perspective for VTE prophylaxis PT/OT/SLT to eval and treat Recommend eval for ERNST and consider outpatient polysomnography No Driving Per [place] State Law following episode of loss of consciousness Telehealth Consultation Telehealth Information Telehealth Information: I performed this visit using a real-time telehealth connection between my location and the patients location ([facility]). After connecting through interactive tele-video, patient was identified by name and da te of and/or wristband check.Patient (or authorized healthcare field representative/health education) was informed that this was a telemedicine visit and it was being conducted confidentially over secure lines. My office door was closed and no one else was present in the room with me.Patient (or authorized healthcare field representative/health education) provided consent to proceed with the visit, expressed an understanding of privacy and security of the telemedicine visit, and gave permission to have a hospital field representative/health education in the room in order to assist with the visit and to conduct portions of the visit, as needed. I informed the patient (or authorized healthcare field representative/health education) that I reviewed their record and presented the opportunity for them to ask any questions regarding the visit today. The patient agreed to participate. History of Present Illness Reason for Consultation: Syncope Requesting Physician: Dr. Horne Attending Physician: Fior Horne MD History of Present Illness 38yo female presented after reported syncopal episode. Unfortunately cannot recall all events. She was reportedly found on floor by her family, activated EMS witnessed confusion lasting approximately 30 minutes. no reported tongue biting or loss of bowel or bladder. She reports similar episodes occurring in the past but not this severe per her own account she believes other episodes did not last as long. She reports first episode occurred approximately a few years ago when she was 33-34 years old. She reports wearing a heart/rhythm, monitor in the past as well. She reports feeling at baseline at this time. I have performed televideo consultation. She is alert & oriented; able to answer all questions appropriately, name objects on televideo monitor, repeat phrases and perform complex/embedded commands without deficit. Neurological exam is non lateralizing/nonfocal in terms of motor strength and coordination. She reports pulsatile tinnitus but denies headache. She reports episodes of blur red vision but states vision clear at this time. She reports no trouble sleeping. Denies SI/HI or social stressors. Denies recent fevers chills nausea vomiting changes in bowels or bladder Denies recent medication changes, recent illness or sick contacts, no reported recent travel She is aware of no driving per [place] state law following unprovoked episode of loss of consciousness- primary/hospitalist team made aware Allergies Allergy/AdvReac Type Severity Reaction Status Date / Time iodine Allergy Intermediate Hives Verified 05/28/24 19:41 latex Allergy Intermediate Hives Verified 05/28/24 19:41 Home Medications Medication Instructions Recorded Confirmed Type acetaminophen 500 mg tablet 500 - 1,000 mg PO Q6H PRN 09/07/23 05/28/24 History PAIN/FEVER naproxen sodium 220 mg tablet 220 mg PO BID PRN Pain 09/07/23 05/28/24 History (Aleve) aspirin 81 mg tablet,delayed 81 mg PO Q OTHER DAY 05/28/24 05/28/24 History release Patient History Social History Smoking Status: Never smoker Hx Alcohol Use: No Hx Substance Use: Yes Last Used Substance: Days (ago) Last Used Substance Other:: 1 week ago Preferred Language: Marshallese Communication Ability: Effective Food Service Substitute Required: No Beliefs That Will Affect Care: None Current Living Situation: Spouse Other Information That Helps Us Care for You: No Feels Safe at Home: Yes Safety Concerns: Feels Safe At This Time Assistive Devices: Glasses Physical Exam Neurological Examination: Mental Status: Awake and alert. Oriented to person, place, and time. Fluency naming repetition and comprehension appear grossly intact. Affect remains appropriate. CN testing: I: Denies changes in ability to smell II:Reports no changes in visual acuity III/IV/: No evidence of gaze preference, hippus, nystagmus or roving eye movements V: Facial sensation reportedly grossly intact to light touch bilaterally VII: Facial movements appear without evidence of asymmetry VIII: Hearing appears grossly intact to loud voice bilaterally IX/X: Palate appears to elevate symmetrically XI: Shoulder shrug appears symmetric/ grossly intact bilaterally XII: Tongue protrudes midline without evidence of biting Motor exam: Strength appears grossly intact/symmetric in all extremities Sensory: Sensation is reportedly grossly intact throughout Coordination: Finger to nose and heel to orantes were intact. No apparent evidence of dysmetria or dysdiadochokinesia Reflexes: Deferred Gait: Deferred Results & Data Vital Signs (Past 12 Hours) Vital Signs Temp Pulse Pulse Resp BP Pulse Ox O2 Del Method 05/29/24 10:28 73 17 117/70 99 Room Air 05/29/24 07:13 71 16 108/66 99 Room Air 05/29/24 07:05 81 05/29/24 04:02 36.7 C 72 17 108/70 98 Room Air Laboratory Results Abnormal lab results 05/28/24 05/29/24 Range/Units 18:49 05:26 RBC 4.17 L 3.84 L (4.20-5.40) M/uL Hgb 9.4 L 8.6 L (12.0-16.0) g/dl Hct 30.7 L 28.1 L (37.0-47.0) % MCV 73.6 L 73.2 L (80.0-100.0) fL MCH 22.5 L 22.4 L (25.0-34.0) pg MCHC 30.6 L 30.6 L (32.0-36.0) g/dL RDW Coeff of Alida 16.7 H 16.7 H (11.5-14.5) % Plt Count 431 H (130-400) K/uL MPV 9.1 L 9.1 L (9.4-12.4) fL Chloride 109 H (98-107) mmol/L Calcium 7.9 L (8.6-10.3) mg/dl Iron 30 L (35-150) mcg/dl Transferrin % Sat 10 L (15-50) % AST 12 L (13-39) U/L Lipase 9 L (11-82) U/L Diagnostic Findings Chest X-Ray 05/28/24 18:47 XR chest 1V portable CLINICAL HISTORY: Chest pain, nonspecific COMPARISON STUDY: Chest radiograph September 07, 2023. FINDINGS: Lung volumes are normal. Lungs are clear. There is no pneumothorax or pleural effusion. Cardiac size is normal. Mediastinal contours are normal. There is no evidence for pulmonary edema. IMPRESSION: No acute cardiopulmonary findings. ACT 112: Negative or not required by law. Electronically signed by: Cole Matt M.D. 05/28/2024 7:[address] 05/28/24 18:48 CT OF THE HEAD WITHOUT CONTRAST CLINICAL HISTORY: fall COMPARISON STUDY: No previous studies for comparison. CT DOSE: 547.75 mGy.cm TECHNIQUE: Helical axial images of the head were obtained without IV contrast. Automated exposure control was utilized for the study. A dose lowering technique was utilized adhering to the principles of ALARA. FINDINGS: No acute intracranial hemorrhage, midline shift or mass effect is present. The ventricular system is unremarkable. The basal cisterns are patent. No extra-axial collections are present. There are no findings to suggest acute dural sinus thrombosis or acute territorial infarct. No significant calvarial abnormalities are present. Visualized portions of the sinuses and mastoid air cells are clear. IMPRESSION: 1. No acute intracranial findings. 2. No calvarial fractures. ACT 112: Negative or not required by law. Electronically signed by: Cole Matt M.D. 05/28/2024 7:20 PM Shoulder X-Ray 05/28/24 18:48 XR shoulder LT min 2V routine CLINICAL HISTORY: Left shoulder pain. COMPARISON: None FINDINGS: Alignment of the left shoulder is anatomic. There is no acute fracture. Joint spaces are preserved. There are no osseous lesions. IMPRESSION: No fracture or dislocation within the left shoulder. ACT 112: Negative or not required by law. Electronically signed by: Cole Matt M.D. 05/28/2024 7:23 PM Brain MRI 05/28/24 22:04 Exam(s): MRI HEAD W/WO Contrast IV Amt: 12cc gadavist EXAM: MR Head Without and With Intravenous Contrast CLINICAL HISTORY: Reason for exam: unreponsive episode. TECHNIQUE: Magnetic resonance images of the head/brain without and with intravenous contrast in multiple planes. CONTRAST: Patient received 12cc gadavist of IV contrast COMPARISON: CT brain: 05/28/2024 FINDINGS: Diagnostic sensitivity is reduced by the absence of IV contrast. Brain: There is no restricted diffusion to suggest acute infarction.. No intracranial hemorrhage, mass-effect or midline shift. FLAIR imaging demonstrated minimal periventricular signal hyperintensity. On postcontrast images no abnormal intracranial enhancement is evident. Ventricles: Unremarkable. No ventriculomegaly. Normal void signal is present within the carotid and basilar arteries. There are no extra- axial fluid collections. Bones/joints: Unremarkable. No acute fracture. Sinuses: Unremarkable as visualized. No acute sinusitis. A 1 cm mucosal retention cyst in the right maxillary sinus. Mastoid air cells: Unremarkable as visualized. No mastoid effusion. Orbits: Unremarkable as visualized. . IMPRESSION: No acute CVA or enhancing intracranial abnormality noted. . Electronically signed by: Radha Woody MD, ANGELLA 05/29/24 01:46 AM Medications Administered Home Medications Medication Instructions Recorded Confirmed Last Taken acetaminophen 500 mg tablet 500 - 1,000 mg PO Q6H PRN 09/07/23 05/28/24 Unknown PAIN/FEVER naproxen sodium 220 mg tablet 220 mg PO BID PRN Pain 09/07/23 05/28/24 Unknown (Aleve) aspirin 81 mg tablet,delayed 81 mg PO Q OTHER DAY 05/28/24 05/28/24 05/27/24 release Active Medications Generic Name Dose Route Start Last Admin Trade Name Freq PRN Reason Stop Dose Admin Acetaminophen 650 mg 05/28/24 22:04 05/28/24 23:16 Acetaminophen 325 Mg Tab PO 06/27/24 22:03 650 mg Q4H PRN Administration Pain or Fever Aspirin 81 mg 05/29/24 09:00 05/29/24 08:44 Aspirin 81 Mg Ectab PO 06/28/24 08:59 81 mg Q48H ANITA Administration Cyanocobalamin 500 mcg 05/29/24 09:00 05/29/24 08:43 Cyanocobalamin (B-12) 500 Mcg Tablet PO 06/28/24 08:59 500 mcg QAM ANITA Administration Ferrous Sulfate 325 mg 05/29/24 11:35 05/29/24 12:41 Ferrous Sulfate 325 Mg Tab PO 06/28/24 11:34 325 mg BIDM ANITA Administration Folic Acid 1 mg 05/29/24 09:00 05/29/24 08:43 Folic Acid 1 Mg Tab PO 06/28/24 08:59 1 mg QAM ANITA Administration Sodium Chloride 1,000 mls @ 100 mls/hr 05/28/24 22:04 05/29/24 09:35 Nss IV 06/27/24 22:03 100 mls/hr .Q10H ANITA Administration Oxycodone HCl 5 mg 05/29/24 12:40 05/29/24 12:48 Oxycodone Hcl Ir 5 Mg Tab (Immediate Release) PO 06/12/24 12:39 5 mg Q6H PRN Administration Severe Pain (Scale 7, 8, 9,10)
--- NOTE | 2024-05-29 11:54 | Hospitalist Progress Note ---
Date of Service May 29, 2024 Assessment & Plan (1) Unresponsive episode: Plan: 38 yo F w/ PMH of PCOS, hyperinsulinemia, obesity, vitamin D deficiency, submucous leiomyoma of uterus, migraine, menorrhagia, iron deficiency anemia, family history of breast cancer, family history of ovarian cancer, family h/o epilepsy (in dtr and mother) comes because of unresponsive episode. Patient does not remember anything. She states her son found her in the house on the floor. She remembers going for a bike ride couple of hours prior to that. Do not remember coming back to the house. Patient states her son told her when he tried to wake her up, she woke up a couple of minutes later and again she felt dizzy and she blacked out for for another 10 minutes. EMS was called and again she was aroused and patient states after she was aroused was confused for about half an hour and then back to normal. No biting of her tongue and no incontinence. Patient states she had a similar episode in the past but not as long as this time. Has some headache. No blurred visions. No earache or runny nose or sore throat. No cough. No difficulty swallowing. Has some chest discomfort mostly in the left clavicular and shoulder region. No shortness of breath. No nausea. No abdominal pain. Normal bowel and bladder movements. Denies bloody or black stools. No recent heavy menses. Micturating okay. Prior to the episode she was ambulating fine and climbing steps fine. She is being managed for the following: Unresponsive episode Episodes as above, has h/o epilepsy in family, admitting CT Head and MRI brain w/ no acute findings. Trop x 1 neg, d-dimer wnl, EKG w/ sinus rhythm. CPK 61. ECHO w/ EF of 55-60%, no RWMA, no pHTN. Nl LV wall thickness. Possible transient global amnesia vs possible seizures vs IIH vs meningitis vs cardiogenic syncope Currently AOx3, but doesn't remember events prior to episodes. No driving per state law, DMV needs notified. f/u on EEG. d/w neuro - ziopatch as OP, LP, concern for IIH, ophthal eval and neuro f/u as OP. Will send LP, follow up on results. Cardio consult, await eval. C/w neuro checks and close monitor. Chest discomfort Mostly left clavicle and shoulder region Chest x-ray and shoulder x-ray okay Troponin okay, echo and ekg as above. Episode could be possible syncope. Ortho vitals neg. c/w tele, await cards eval. Likely Iron deficiency anemia Microcytic anemia ho FLORINDA and ho menorrhagia Admitting Hb 9.4, MCV 73.6. Pt denies any blood or black stools. Iron 30, transferrin % 10, Folate 11.57, B12 232 Start 05/29 iron supplement, b12 and folate supplement repeat iron profile in 3 months, f/u pcp office. f/u fobt. Monitor HnH DVT prophylaxis: SCDs for now Disposition: Telemetry Full code. Admission and Anticipated Discharge Date Admission Date: May 28, 2024 Subjective Patient was seen and examined at bedside. Patient was lying in bed, on room air, NAD, resting comfortably. Patient reports no recent febrile illness or sore throat or cough, reports she has been eating okay and denies any acute changes in her bowel or bladder habit. Patient denies any further loss of consciousness episodes in the hospital. Patient reports whole body soreness. Patient reports chest tightness feeling better now. Physical Exam Physical Exam: General- Not in acute distress Head- atraumatic Eyes- PERRL. ENT- oropharynx clear Neck- supple, no JVD. Lungs- clear to auscultation no wheezing or crackles Heart- regular rate and rhythm; no murmur, no gallop. Abdomen- normal bowel sounds, soft, nontender, no distension. Extremities- no pretibial edema, no erythema seen Neuro- alert, oriented PERRL, no facial palsy; no dysarthria; motor 5/5 bilaterally Skin- warm & dry Results & Data Results & Data Vital Signs (Past 12 Hours) Vital Signs Temp Pulse Pulse Resp BP Pulse Ox O2 Del Method 05/29/24 10:28 73 17 117/70 99 Room Air 05/29/24 07:13 71 16 108/66 99 Room Air 05/29/24 07:05 81 05/29/24 04:02 36.7 C 72 17 108/70 98 Room Air
[2024-05-29] MEDS ORDERED: oxyCODONE HCL IR 5 MG TAB (IMMEDIATE RELEASE) PO PRN (12:33)
[2024-05-29] MEDS: FERROUS SULFATE 325 MG TAB PO SCH (12:41)
[2024-05-29] MEDS: oxyCODONE HCL IR 5 MG TAB (IMMEDIATE RELEASE) PO PRN (12:48)
--- NOTE | 2024-05-29 13:09 | Electrocardiogram Report ---
Test Reason : Blood Pressure : */* mmHG Vent. Rate : 78 BPM Atrial Rate : 78 BPM P-R Int : 136 ms QRS Dur : 84 ms QT Int : 410 ms P-R-T Axes : 9 -8 -14 degrees QTcB Int : 467 ms Normal sinus rhythm RSR' or QR pattern in V1 suggests right ventricular conduction delay Abnormal ECG When compared with ECG of 07-Sep-2023 14:04, No significant change was found Confirmed by Beau Tran ([id number]) on 05/29/2024 1:08:53 PM Referred By: REFERRED SELF Confirmed By: Beau Tran
--- NOTE | 2024-05-29 13:18 | Cardiology Consultation ---
Date of Consultation May 29, 2024 Assessment & Plan (1) Unresponsive episode: (2) Chest pain: No complaints at time of cardiology examination patient denies recollection (3) Anemia: Microcytic indices Plan 38-year-old female with episodic unresponsive episode. Uncertain etiology. Initial neurologic and cardiovascular evaluations unrevealing. Echocardiogram normal, telemetry without arrhythmias, cardiac enzymes negative Reviewed old records chest CT in past without anomalous origin of coronaries. Lipids are excellent do not suspect ischemic heart disease EKG with minimal QTc prolongation 483 Family history of coronary disease in grandparents and latter years but no sudden or arrhythmia or premature atherosclerotic disease No overt cardiac cause for unresponsive episodes discerned Recommendations Agree with event monitor postdischarge. Maintain telemetry while in hospital. Consider Linq insertion, stress testing if all other investigations negative Repeat EKG after potassium supplement Assess anemia source History of Present Illness Reason for Consultation: Syncopal event Requesting Physician: Dr. Horne Attending Physician: Fior Horne MD History of Present Illness Patient is a 38-year-old female without prior history of cardiac disease or issues admitted following an unwitnessed episode of syncope versus unresponsive episode. Found confused by family members on the floor. Transient loss of responsiveness while witnessed. No seizure activity On ER evaluation possible left shoulder pain. No witnessed falls or injury but hurt all over Prior similar event of unresponsiveness in 2020 Holter monitor negative for arrhythmia Microcytic anemia present on presentation with patient noting prior difficulties with iron deficiency during Patient without recollection of events. No prior history of known cardiac disease Physically active usually without chest pain or exertional dyspnea Allergies Allergy/AdvReac Type Severity Reaction Status Date / Time iodine Allergy Intermediate Hives Verified 05/28/24 19:41 latex Allergy Intermediate Hives Verified 05/28/24 19:41 Home Medications Medication Instructions Recorded Confirmed Type acetaminophen 500 mg tablet 500 - 1,000 mg PO Q6H PRN 09/07/23 05/28/24 History PAIN/FEVER naproxen sodium 220 mg tablet 220 mg PO BID PRN Pain 09/07/23 05/28/24 History (Aleve) aspirin 81 mg tablet,delayed 81 mg PO Q OTHER DAY 05/28/24 05/28/24 History release Patient History Social History Smoking Status: Never smoker Hx Alcohol Use: No Hx Substance Use: Yes Last Used Substance: Days (ago) Last Used Substance Other:: 1 week ago Preferred Language: Dominican Communication Ability: Effective Eap Specialist Required: No Beliefs That Will Affect Care: None Current Living Situation: Spouse Other Information That Helps Us Care for You: No Feels Safe at Home: Yes Safety Concerns: Feels Safe At This Time Assistive Devices: Glasses Review of Systems Review of Systems: All systems reviewed & are unremarkable except as noted in HPI & below Physical Exam Constitutional: WD/WN, vitals as above no acute distress Eyes: PERRL, conjunctivae normal, anicteric sclerae ENMT: external ear and nose normal, oropharynx normal Neck: trachea midline, no thyromegaly Respiratory: normal respiratory effort, lungs clear to auscultation Cardiovascular: Rate/Rhythm: regular rate and regular rhythm Heart Sounds: normal S1 and normal S2; no gallop and no murmur Palpation: normal PMI Vessels: normal carotid upstroke and radial pulses present; no JVD and no carotid bruit Extremities: no edema Gastrointestinal (Abdomen): normal bowel sounds, soft, nontender, no hepatosplenomegaly Musculoskeletal: no cyanosis or clubbing, extremities motor strength 5/5 Skin: no rashes, warm and dry Neurologic: PERRL, EOMI, accommodation nl, no face palsy, no dysarthria Psychiatric: A+Ox3, euthymic affect Results & Data Vital Signs (Past 12 Hours) Vital Signs Temp Pulse Pulse Resp BP Pulse Ox O2 Del Method 05/29/24 10:28 73 17 117/70 99 Room Air 05/29/24 07:13 71 16 108/66 99 Room Air 05/29/24 07:05 81 05/29/24 04:02 36.7 C 72 17 108/70 98 Room Air Laboratory Results Laboratory Results - last 24 hr 05/28/24 05/29/24 05/29/24 18:49 05:26 12:01 WBC 9.39 6.55 RBC 4.17 L 3.84 L Hgb 9.4 L 8.6 L Hct 30.7 L 28.1 L MCV 73.6 L 73.2 L MCH 22.5 L 22.4 L MCHC 30.6 L 30.6 L RDW Std Deviation 43.6 44.0 RDW Coeff of Alida 16.7 H 16.7 H Plt Count 431 H 378 MPV 9.1 L 9.1 L Immature Gran % (Auto) 0.3 0.3 Neut % (Auto) 64.2 49.3 Lymph % (Auto) 27.8 40.3 [place] % (Auto) 6.0 7.0 Eos % (Auto) 1.2 2.3 Baso % (Auto) 0.5 0.8 Neut # (Auto) 6.03 3.23 Lymph # (Auto) 2.61 2.64 [place] # (Auto) 0.56 0.46 Eos # (Auto) 0.11 0.15 Baso # (Auto) 0.05 0.05 Immature Gran # (Auto) 0.03 0.02 D-Dimer 460 Sodium 137 137 Potassium 3.7 3.6 Chloride 107 109 H Carbon Dioxide 24 23 Anion Gap 6 5 BUN 10 10 Creatinine 0.76 0.76 Est Cr Clr Drug Dosing 140.2 138.8 Est GFR ( Amer) 117.0 117.0 Est GFR (Non-Af Amer) 100.9 100.9 BUN/Creatinine Ratio 13.2 13.2 Glucose 98 85 95 Estimat Average Glucose 114 Hemoglobin A1c 5.6 Calcium 8.7 7.9 L Magnesium 2.1 Iron 30 L TIBC 312 Unsaturated IBC 282 Transferrin % Sat 10 L Total Bilirubin 0.3 AST 12 L ALT 11 Alkaline Phosphatase 59 Total Creatine Kinase 61 Troponin I High Sens 2.7 Total Protein 7.2 Albumin 4.0 Globulin 3.2 Albumin/Globulin Ratio 1.3 Triglycerides 69 Cholesterol 116 LDL Cholesterol, Calc 72 VLDL Cholesterol, Calc 14 HDL Cholesterol 30 Cholesterol/HDL Ratio 3.9 Lipase 9 L Vitamin B12 232 Folate 11.57 EBV Source EBV DNA, Quant EBV DNA (PCR) 05/29/24 12:07 WBC RBC Hgb Hct MCV MCH MCHC RDW Std Deviation RDW Coeff of Alida Plt Count MPV Immature Gran % (Auto) Neut % (Auto) Lymph % (Auto) [place] % (Auto) Eos % (Auto) Baso % (Auto) Neut # (Auto) Lymph # (Auto) [place] # (Auto) Eos # (Auto) Baso # (Auto) Immature Gran # (Auto) D-Dimer Sodium Potassium Chloride Carbon Dioxide Anion Gap BUN Creatinine Est Cr Clr Drug Dosing Est GFR ( Amer) Est GFR (Non-Af Amer) BUN/Creatinine Ratio Glucose Estimat Average Glucose Hemoglobin A1c Calcium Magnesium Iron TIBC Unsaturated IBC Transferrin % Sat Total Bilirubin AST ALT Alkaline Phosphatase Total Creatine Kinase Troponin I High Sens Total Protein Albumin Globulin Albumin/Globulin Ratio Triglycerides Cholesterol LDL Cholesterol, Calc VLDL Cholesterol, Calc HDL Cholesterol Cholesterol/HDL Ratio Lipase Vitamin B12 Folate EBV Source Pending EBV DNA, Quant Pending EBV DNA (PCR) Pending (2) Chest pain Chest pain type: unspecified Qualified Code(s): R07.9 - Chest pain, unspecified (3) Anemia Anemia type: unspecified type Qualified Code(s): D64.9 - Anemia, unspecified
--- NOTE | 2024-05-29 13:19 | Electrocardiogram Report ---
Test Reason : Blood Pressure : */* mmHG Vent. Rate : 67 BPM Atrial Rate : 67 BPM P-R Int : 130 ms QRS Dur : 80 ms QT Int : 458 ms P-R-T Axes : 15 1 -15 degrees QTcB Int : 483 ms Normal sinus rhythm Low voltage QRS Prolonged QT Abnormal ECG When compared with ECG of 28-May-2024 18:47, (unconfirmed) Minimal criteria for Anterior infarct are no longer Present Nonspecific T wave abnormality no longer evident in Lateral leads Confirmed by Beau Tran ([id number]) on 05/29/2024 1:19:02 PM Referred By: REFERRED SELF Confirmed By: Beau Tran
--- NOTE | 2024-05-29 13:56 | Communication Note ---
Date of Service: May 29, 2024 No patient's prior [facility] records are available in [facility] under name Jo-Ann Dumont
--- NOTE | 2024-05-29 13:57 | Fluoroscopy Report ---
Fluoroscopic guided lumbar puncture INDICATION: Syncope PROCEDURE: Procedure and risks were explained. Informed consent was obtained. A final timeout was com pleted. The patient was placed prone on the fluoroscopic exam table. The lower lumbar was prepped and draped in sterile fashion. 1% lidocaine was utilized for skin anesthesia. Utilizing fluoroscopic guidance, a 22-gauge spinal needle was advanced into the intrathecal space at the L2-3 level. Permanent spot images were obtained. Opening pressure was measured at 24.5 cm H2O. Ap proximately 9 mL of clear CSF fluid was removed and sent to lab for analysis. The needle was removed and Band-Aid applied. The patient tolerated the procedure well. Vital signs will be monitored on the floor prior to discharge. Fluoroscopy time 8 seconds. Study dose is 9.34 mGy. IMPRESSION: Lumbar puncture as above. Performed, dictated, and signed by Nicholas Wiggins PA-C; to be co-signed by Dr. New Tijerina. Electronically signed by: New Tijerina M.D. 05/29/2024 2:58 PM
[2024-05-29 14:17] LABS: Appearance CSF Clear; CSF Count Tube # 3; CSF Xanthrochromic No xanthochromia; Color CSF Colorless; Red Blood Cell CSF Manual 1 (0-); White Blood Cell CSF Manual 2 (0-5)
[2024-05-29 14:28] LABS: Total Protein CSF 30.4 mg/dl (15-45)
[2024-05-29] MEDS: POTASSIUM CHLORIDE CRTAB 20 MEQ TABCR PO ONE (14:35)
[2024-05-29] MEDS ORDERED: ONDANSETRON INJ 2 MG/ML 2 ML VIAL IV PRN (15:39)
[2024-05-29] MEDS: HYDROmorphone INJ 0.5 MG/0.5 ML SYR IV STA (15:39)
[2024-05-29] MEDS: KETOROLAC TROMETHAMINE 15 MG/ML VIAL IV ONE (15:47)
[2024-05-29 15:51] LABS: Cryptococcus neoformans/ga PCR Not Detected (NotDetected); Cytomegalovirus PCR Not Detected (NotDetected); Enterovirus PCR Not Detected (NotDetected); Escherichia coli K1 PCR Not Detected (NotDetected); Haemophilius influenzae PCR Not Detected (NotDetected); Herpes Simplex Virus 1 PCR Not Detected (NotDetected); Herpes Simplex Virus 2 PCR Not Detected (NotDetected); Human Herpes Virus 6 PCR Not Detected (NotDetected); Human Parechovirus PCR Not Detected (NotDetected); Listeria monocytogenes PCR Not Detected (NotDetected); Neisseria meningitidis PCR Not Detected (NotDetected); Streptococcus agalactiae PCR Not Detected (NotDetected); Streptococcus pneumoniae PCR Not Detected (NotDetected); Varicella Zoster Virus PCR Not Detected (NotDetected)
--- NOTE | 2024-05-29 16:10 | Electroencephalogram ---
EEG Procedure Note Date of Service May 29, 2024 Start / End Times Start Time: 932 End Time: [address] Roland Proctor History A 38 year old female with loss of consciousness. EEG performed for evaluation of epileptiform activity. Home Medication List Medication Instructions Recorded Confirmed Type acetaminophen 500 mg tablet 500 - 1,000 mg PO Q6H PRN 09/07/23 05/28/24 History PAIN/FEVER naproxen sodium 220 mg tablet 220 mg PO BID PRN Pain 09/07/23 05/28/24 History (Aleve) aspirin 81 mg tablet,delayed 81 mg PO Q OTHER DAY 05/28/24 05/28/24 History release Inpatient Medication List Acetaminophen (Acetaminophen 325 Mg Tab) 650 mg PO Q4H PRN PRN Reason: Pain or Fever Stop: 06/27/24 22:03 Last Admin: 05/29/24 14:55 Dose: 650 mg Documented By: Admin: 05/28/24 23:16 Dose: 650 mg Documented By: ARR Aspirin (Aspirin 81 Mg Ectab) 81 mg PO Q48H [facility] Stop: 06/28/24 08:59 Last Admin: 05/29/24 08:44 Dose: 81 mg Documented By: AM Cyanocobalamin (Cyanocobalamin (B-12) 500 Mcg Tablet) 500 mcg PO QAM [facility] Stop: 06/28/24 08:59 Last Admin: 05/29/24 08:43 Dose: 500 mcg Documented By: AM Ferrous Sulfate (Ferrous Sulfate 325 Mg Tab) 325 mg PO BIDM [facility] Stop: 06/28/24 11:34 Last Admin: 05/29/24 12:41 Dose: 325 mg Documented By: AM Folic Acid (Folic Acid 1 Mg Tab) 1 mg PO QAM [facility] Stop: 06/28/24 08:59 Last Admin: 05/29/24 08:43 Dose: 1 mg Documented By: AM Sodium Chloride (Nss) 1,000 mls @ 100 mls/hr IV .Q10H ANITA Stop: 06/27/24 22:03 Last Infusion: 05/29/24 14:05 Dose: 100 mls/hr Documented By: Infusion: 05/29/24 13:00 Dose: 0 mls/hr Documented By: Admin: 05/29/24 09:35 Dose: 100 mls/hr Documented By: Infusion: 05/29/24 09:35 Dose: Infused Documented By: Admin: 05/28/24 23:00 Dose: 100 mls/hr Documented By: GAGE Oxycodone HCl (Oxycodone Hcl Ir 5 Mg Tab (Immediate Release)) 5 mg PO Q6H PRN PRN Reason: Severe Pain (Scale 7, 8, 9,10) Stop: 06/12/24 12:39 Last Admin: 05/29/24 12:48 Dose: 5 mg Documented By: AM Discontinued Medications Gadobutrol (Gadobutrol 30ml Vial) 12 ml IV ONCE ONE Stop: 05/29/24 00:02 Last Admin: 05/29/24 00:01 Dose: 12 ml Documented By: GRIS Hydromorphone HCl (Hydromorphone Inj 0.5 Mg/0.5 Ml Syr) 0.5 mg IV NOW STA Stop: 05/29/24 15:36 Last Admin: 05/29/24 15:39 Dose: 0.5 mg Documented By: JOAN Thiamine HCl 400 mg/ Sodium (Chloride) 54 mls @ 108 mls/hr IV NOW STA Stop: 05/28/24 22:48 Last Infusion: 05/29/24 00:24 Dose: Infused Documented By: Admin: 05/28/24 23:00 Dose: 108 mls/hr Documented By: GAGE Ketorolac Tromethamine (Ketorolac Tromethamine 15 Mg/Ml Vial) 15 mg IV NOW ONE Stop: 05/28/24 18:49 Last Admin: 05/28/24 19:18 Dose: 15 mg Documented By: ELICEO Ketorolac Tromethamine (Ketorolac Tromethamine 15 Mg/Ml Vial) 10 mg IV NOW ONE Stop: 05/29/24 15:26 Last Admin: 05/29/24 15:47 Dose: Not Given Documented By: AM Lorazepam (Lorazepam 0.5 Mg Tab) 0.5 mg PO NOW STA Stop: 05/28/24 22:45 Last Admin: 05/28/24 23:16 Dose: 0.5 mg Documented By: GAGE Potassium Chloride (Potassium Chloride Crtab 20 Meq Tabcr) 40 meq PO NOW ONE Stop: 05/29/24 14:01 Last Admin: 05/29/24 14:35 Dose: 40 meq Documented By: JOAN Description This is a 21 electrode EEG with a single channel dedicated to limited EKG. The electrodes were placed in accordance with the International 10-20 system. REPORT: At the onset of the EEG, the patient is awake. The background activity consists of 10-11 Hz, persistent, posteriorly dominant, moderate amplitude, symmetric and rhythmic activity that is reactive to eye opening with intermixed, 10-20 uV, beta activity. Anteriorly, it consists of a mixture of low voltage indeterminate activity and 15-25Hz, persistent, low amplitude, symmetric and rhythmic activity. Stepwise intermittent photic stimulation (1-23 Hz) does not induce any abnormalities. Drowsiness is characterized by low amplitude mixed frequency activity, roving eye movements, and decreased eye blinking and muscle artifact. Interpretation IMPRESSION: This is a normal awake and drowsy routine EEG. There is no evidence of focal slowing or epileptiform activity.
[2024-05-29] MEDS: HYDROmorphone INJ 0.5 MG/0.5 ML SYR IV PRN (17:46)
--- NOTE | 2024-05-29 22:34 | CT Scan Report ---
Exam(s): CT HEAD Without Contrast EXAM: CT Head Without Intravenous Contrast CLINICAL HISTORY: drowsy, headache. TECHNIQUE: Axial computed tomography images of the head/brain without intravenous contrast. CTDI is 37.61 mGy and DLP is 546.36 mGy-cm. Automated exposure control was utilized for the study. A dose lowering technique was utilized adhering to the principles of ALARA. COMPARISON: MRI brain 05/28/2024. FINDINGS: Study is limited by patient motion. Brain: Ventricle and sulci normal in size and configuration for age. No acute stroke. No acute hemorrhage. No abnormal extra-axial fluid collection. Ventricles: No hydrocephalus. No midline shift. Bones/joints: Unremarkable. No acute fracture. Soft tissues: Unremarkable. Sinuses: Unremarkable as visualized. No acute sinusitis. IMPRESSION: No acute abnormality. Study is limited by patient motion. Electronically signed by: Manjit Rojas M.D. 05/29/24 22:33 PM
[2024-05-30 07:17] LABS: Hematocrit (blood only) 28.1 % (37.0-47.0); Hemoglobin 8.4 g/dl (12.0-16.0); Mean Corpuscular Hemoglobin 21.9 pg (25.0-34.0); Mean Corpuscular Hgb Conc 29.9 g/dL (32.0-36.0); Mean Corpuscular Volume 73.4 fL (80.0-100.0); Mean Platelet Volume 9.2 fL (9.4-12.4); Platelet Count 366 K/uL (130-400); RDW Coefficient of Variation 16.8 % (11.5-14.5); RDW Standard Deviation 44.2 fL (36.4-46.3); Red Blood Count 3.83 M/uL (4.20-5.40); White Blood Count 6.66 K/ul (4.8-10.8)
[2024-05-30 07:35] LABS: BUN Creatinine Ratio 12.3 (10-20); Calcium 7.5 mg/dl (8.6-10.3); Creatinine Clr Calc Pharmacy 144.6 ml/min; Est GFR (African American) 122.8 ml/min; Phosphorus 3.1 mg/dl (2.5-4.9)
--- NOTE | 2024-05-30 09:52 | XRay Report ---
XR lumbar spine 2-3V HISTORY: 38 years-old Female low back pain acute low back pain COMPARISON: Lumbar puncture 05/29/2024 TECHNIQUE: 3 views of the lumbar spine FINDINGS: No acute fracture, subluxation, endplate erosion or opaque foreign body. Intervertebral disc spaces a re well-preserved. IMPRESSION: No acute abnormality. ACT 112: Negative or not required by law. The above report was generated using voice recognition software. It may contain grammatical, syntax o r spelling errors. Electronically signed by: New Tijerina M.D. 05/30/2024 9:51 AM
[2024-05-30] MEDS: DOCUSATE SODIUM/SENNA 50/8.6MG TAB PO SCH (10:43)
[2024-05-30] MEDS: ACETAMINOPHEN 325 MG TAB PO SCH (10:43)
[2024-05-30] MEDS: DICLOFENAC SOD 1% GEL 100 GM TUBE EXT SCH (10:44)
--- NOTE | 2024-05-30 10:56 | Electrocardiogram Report ---
Test Reason : Blood Pressure : */* mmHG Vent. Rate : 68 BPM Atrial Rate : 68 BPM P-R Int : 138 ms QRS Dur : 78 ms QT Int : 446 ms P-R-T Axes : 11 -1 -10 degrees QTcB Int : 474 ms Normal sinus rhythm Low voltage QRS Borderline ECG When compared with ECG of 29-May-2024 06:58, No significant change was found Confirmed by Beau Tran ([id number]) on 05/30/2024 10:56:12 AM Referred By: REFERRED SELF Confirmed By: Beau Tran
--- NOTE | 2024-05-30 12:38 | Cardiology Progress Note ---
Date of Service May 30, 2024 Assessment & Plan (1) Unresponsive episode: (2) Chest pain: Plan: No complaints at time of cardiology examination patient denies recollection (3) Anemia: Plan: Microcytic indices Plan 38-year-old female with episodic unresponsive episode. Uncertain etiology. Initial neurologic and cardiovascular evaluations unrevealing. Echocardiogram normal, telemetry without arrhythmias, cardiac enzymes negative Reviewed old records chest CT in past without anomalous origin of coronaries. Lipids are excellent do not suspect ischemic heart disease EKG with minimal QTc prolongation 483 Family history of coronary disease in grandparents and latter years but no sudden or arrhythmia or premature atherosclerotic disease No overt cardiac cause for unresponsive episodes discerned Recommendations Agree with event monitor postdischarge. Maintain telemetry while in hospital. Consider Linq insertion, stress testing if all other investigations negative Repeat EKG after potassium supplement Assess anemia source 05/30/2024 1. Recurrent unresponsive episode All records reviewed. Outpatient records reflect possible similar event in 2020 Mild QT prolongation on EKG during this admission Given complaints and ill-defined episodes will plan on placing Linq event monitor tomorrow N.p.o. after midnight Discussed with patient who is agreeable Admission and Anticipated Discharge Date Admission Date: May 28, 2024 Subjective Patient was seen and examined, chart, medications, telemetry reviewed reviewed. No cardiac events overnight. No arrhythmias. Physical Exam Constitutional: WD/WN, vitals as above no acute distress Eyes: PERRL, conjunctivae normal, anicteric sclerae ENMT: external ear and nose normal, oropharynx normal Neck: trachea midline, no thyromegaly Respiratory: normal respiratory effort, lungs clear to auscultation Cardiovascular: Rate/Rhythm: regular rate and regular rhythm Heart Sounds: normal S1 and normal S2; no gallop and no murmur Palpation: normal PMI Vessels: normal carotid upstroke and radial pulses present; no JVD and no carotid bruit Extremities: no edema Gastrointestinal (Abdomen): normal bowel sounds, soft, nontender, no hepatosplenomegaly Musculoskeletal: no cyanosis or clubbing, extremities motor strength 5/5 Skin: no rashes, warm and dry Neurologic: PERRL, EOMI, accommodation nl, no face palsy, no dysarthria Psychiatric: A+Ox3, euthymic affect Results & Data Vital Signs (Past 12 Hours) Vital Signs Temp Pulse Pulse Resp BP Pulse Ox O2 Del Method 05/30/24 10:21 36.9 C 85 17 106/70 99 Room Air 05/30/24 09:24 Room Air 05/30/24 07:24 36.9 C 76 18 115/70 97 Room Air 05/30/24 07:24 98 H 05/30/24 02:00 36.9 C 70 18 121/73 98 Room Air (2) Chest pain Chest pain type: unspecified Qualified Code(s): R07.9 - Chest pain, unspecified (3) Anemia Anemia type: unspecified type Qualified Code(s): D64.9 - Anemia, unspecified
--- NOTE | 2024-05-30 13:02 | Communication Note ---
Date of Service: May 30, 2024 EMR reviewed, imaging reviewed LP revealed elevated opening pressure Await CTA head and neck- if no evidence of abnormality consistent with pulsatile tinnitus then recommend initiate Diamox 500mg PO BID Will need continued outpatient monitoring of symptoms and metabolic laboratories following initiation of above diuretic Recommend urgent ophthalmology evaluation of optic nerves in setting of concern for IIH Plan for continued follow up outpatient Neurology Agree with continued syncope workup/cardiology consultation Consider continued cardiac monitoring -Ziopatch or other per Cardiology recs
--- NOTE | 2024-05-30 15:30 | Hospitalist Progress Note ---
Date of Service May 30, 2024 Assessment & Plan (1) Unresponsive episode: Plan: 38 yo F w/ PMH of PCOS, hyperinsulinemia, obesity, vitamin D deficiency, submucous leiomyoma of uterus, migraine, menorrhagia, iron deficiency anemia, family history of breast cancer, family history of ovarian cancer, family h/o epilepsy (in dtr and mother) comes because of unresponsive episode. Patient does not remember anything. She states her son found her in the house on the floor. She remembers going for a bike ride couple of hours prior to that. Do not remember coming back to the house. Patient states her son told her when he tried to wake her up, she woke up a couple of minutes later and again she felt dizzy and she blacked out for for another 10 minutes. EMS was called and again she was aroused and patient states after she was aroused was confused for about half an hour and then back to normal. No biting of her tongue and no incontinence. Patient states she had a similar episode in the past but not as long as this time. Has some headache. No blurred visions. No earache or runny nose or sore throat. No cough. No difficulty swallowing. Has some chest discomfort mostly in the left clavicular and shoulder region. No shortness of breath. No nausea. No abdominal pain. Normal bowel and bladder movements. Denies bloody or black stools. No recent heavy menses. Micturating okay. Prior to the episode she was ambulating fine and climbing steps fine. She is being managed for the following: Unresponsive episode Episodes as above, has h/o epilepsy in family, admitting CT Head and MRI brain w/ no acute findings. Trop x 1 neg, d-dimer wnl, EKG w/ sinus rhythm. CPK 61. ECHO w/ EF of 55-60%, no RWMA, no pHTN. Nl LV wall thickness. 05/29 EEG: This is a normal awake and drowsy routine EEG. There is no evidence of focal slowing or epileptiform activity. Per pt's , pt had another episode of unresponsiveness/shaking while in hospital around 730 pm 05/29, pt was evaled by nightteam and noted to be sleepy/following commands, no telemetric events noted around the time. Pt complaints of headache 05/30, she reports intermittent headache in the past. Possible transient global amnesia vs possible seizures vs IIH vs meningitis vs cardiogenic syncope s/p LP 05/29: cytology wnl, chemistries either wnl or pending, serologies either neg or pending, Cx pending. Follow all final results. Currently AOx3, but doesn't remember events around the episodes. No driving per state law, DMV notified. Patient has been made aware. Neuro evaled - ziopatch as OP, concern for IIH, ophthal eval and neuro f/u as OP. D/w Cardio 05/30, plan for Linq event monitor tomorrow. D/w neuro 05/30 and ophthalmology 05/30, Pt need eye eval, ophthalmo suggested OP eval in 1-2 days. Both suggested starting diamox. Nurse navigator reached out to help set up eye appointment for Pt will benefit from OP sleep study, pt has been made aware to set up the test with help of PCP office. Follow up w/ BMP/lytes iso diamox use from 05/30 evening. Follow clinically for improvement jason now diamox has been started. C/w neuro checks and close monitor. NPO midnight for Linq monitor placement amor Pt to get contrast allergy protocol starting today evening, CTA head and neck amor am around 9 am. Chest discomfort Mostly left clavicle and shoulder region Chest x-ray and shoulder x-ray okay Troponin okay, echo and ekg as above. Episode could be possible syncope. Ortho vitals neg. c/w tele, appreciate cards eval. Low back pain: chronic but increased after LP on 05/29 per pt. no tenderness or erythema/swelling noted at LP site. pt on liset tylenol and diclo gel, prn oxy and dilaudid. bowel regimen liset and prn are on board, pt advised to utilized prn bowel regimen if she is not moving bowel. xr L spine w/ no acute findings. Likely Iron deficiency anemia Microcytic anemia ho FLORINDA and ho menorrhagia Admitting Hb 9.4, MCV 73.6. Pt denies any blood or black stools. Iron 30, transferrin % 10, Folate 11.57, B12 232 c/w 05/29 iron supplement, b12 and folate supplement repeat iron profile in 3 months, f/u pcp office. Pt and her made aware to have repeat labs in 3 months. f/u fobt. Monitor HnH DVT prophylaxis: SCDs for now Disposition: Telemetry Full code. Total time spent : 100 minutes Admission and Anticipated Discharge Date Admission Date: May 28, 2024 Subjective Patient was seen and examined at bedside. Patient was lying in bed, on room air, NAD, resting comfortably. Pt was seen during second eval at around 630 pm yesterday, she seemed somewhat loopy likely 2/2 to narcotics pain meds use prior in the day, she appeared comfortable and had no complaints at the moment. At around 730 pm, she had an episode of shaking/not responsive similar to the one she presented with per pt's . Pt was evaled by night team, she was noted to be sleepy/obeying commands per night team at bedside exam. CT Head was done and w/ no acute findings. No cardiac events per telemetry review around the time. Patient was again seen during the day today for second evaluation. Patient's at bedside. Patient was lying in bed and complains of headache now. Denies any visual changes, no ophthalmoplegia noted on exam. No afferent pupillary defect noted on exam. Quick and symmetric pupillary responses to light noted on both eyes. Patient's was updated in detail, answered all his question. Their main concern was pt's back pain was not being managed appropriately. Her back pain is chronic but after LP she reports pain has increased. XR L spine w/ no acute findings. Since patient was refusing prn Tylenol in favor of opiates, Tylenol and diclofenac gel has been made scheduled, to be kept such for few days, patient has been informed that oxycodone and Dilaudid has been put for severe pain if and when needed since yesterday. Appears after taking scheduled Tylenol and diclofenac gel, pain is better controlled. Will continue to follow. Answered all questions of the patient and patient's at bedside. Informed them that diff physician will be taking over my role from amor, stated he would really have been "really pissed" amor if i had forgotten to mention this today and saw a diff physician amor. About 25 minutes spent at bedside listening to their dissatisfaction/and trying to answer their curiosities w/ medical reasonings. Physical Exam Physical Exam: General- Not in acute distress Head- atraumatic Eyes- PERRL. bilateral quick and symmetric pupillary reflexes noted, no ophthalmoplegia noted. ENT- oropharynx clear Neck- supple, no JVD. Lungs- clear to auscultation no wheezing or crackles Heart- regular rate and rhythm; no murmur, no gallop. Abdomen- normal bowel sounds, soft, nontender, no distension. Extremities- no pretibial edema, no erythema seen Neuro- alert, oriented PERRL, no facial palsy; no dysarthria; motor 5/5 bilaterally Skin- warm & dry Low back w/ no erythema or swelling, no tenderness noted on exam at site of LP puncture. Results & Data Results & Data Vital Signs (Past 12 Hours) Vital Signs Temp Pulse Pulse Resp BP Pulse Ox O2 Del Method 05/30/24 13:45 71 05/30/24 10:21 36.9 C 85 17 106/70 99 Room Air 05/30/24 09:24 Room Air 05/30/24 07:24 36.9 C 76 18 115/70 97 Room Air 05/30/24 07:24 98 H
[2024-05-30] MEDS: acetaZOLAMIDE 250 MG TAB PO SCH (15:56)
[2024-05-30] MEDS: predniSONE 50 MG TAB PO SCH (18:03)
[2024-05-31] MEDS: predniSONE 50 MG TAB PO SCH (02:08)
[2024-05-31 06:38] LABS: Hemoglobin 9.5 g/dl (12.0-16.0); Mean Corpuscular Hemoglobin 22.3 pg (25.0-34.0); Mean Corpuscular Hgb Conc 29.7 g/dL (32.0-36.0); Mean Corpuscular Volume 75.1 fL (80.0-100.0); Mean Platelet Volume 9.4 fL (9.4-12.4); Platelet Count 424 K/uL (130-400); RDW Coefficient of Variation 16.5 % (11.5-14.5); RDW Standard Deviation 44.3 fL (36.4-46.3); Red Blood Count 4.26 M/uL (4.20-5.40); White Blood Count 8.84 K/ul (4.8-10.8)
[2024-05-31 07:11] LABS: BUN Creatinine Ratio 15.2 (10-20); Calcium 8.3 mg/dl (8.6-10.3); Creatinine Clr Calc Pharmacy 161.1 ml/min; Est GFR (African American) 131.7 ml/min; Est GFR (Non-African American) 113.6 ml/min; Magnesium 1.9 mg/dl (1.7-2.4); Phosphorus 2.3 mg/dl (2.5-4.9)
[2024-05-31 07:49] VITALS: TEMP 98.2
[2024-05-31] MEDS: diphenhydrAMINE Capsule 25 MG CAP PO ONE (08:50)
[2024-05-31] MEDS: FAMOTIDINE 20 MG TAB PO ONE (08:52)
[2024-05-31 09:07] LABS: EBV DNA Quant Source CSF
[2024-05-31] MEDS: OPTIRAY 320 125ml IV ONE (10:25)
[2024-05-31] MEDS ORDERED: oxyCODONE/ACETAMINOPHEN 5mg/325mg TAB PO PRN (11:02)
[2024-05-31 11:47] VITALS: RESP 18
--- NOTE | 2024-05-31 12:24 | Cardiology Progress Note ---
Date of Service May 31, 2024 Assessment & Plan (1) Unresponsive episode: (2) Chest pain: Plan: No complaints at time of cardiology examination patient denies recollection (3) Anemia: Plan: Microcytic indices Plan 38-year-old female with episodic unresponsive episode. Uncertain etiology. Initial neurologic and cardiovascular evaluations unrevealing. Echocardiogram normal, telemetry without arrhythmias, cardiac enzymes negative Reviewed old records chest CT in past without anomalous origin of coronaries. Lipids are excellent do not suspect ischemic heart disease EKG with minimal QTc prolongation 483 Family history of coronary disease in grandparents and latter years but no sudden or arrhythmia or premature atherosclerotic disease No overt cardiac cause for unresponsive episodes discerned Recommendations Agree with event monitor postdischarge. Maintain telemetry while in hospital. Consider Linq insertion, stress testing if all other investigations negative Repeat EKG after potassium supplement Assess anemia source 05/30/2024 1. Recurrent unresponsive episode All records reviewed. Outpatient records reflect possible similar event in 2020 Mild QT prolongation on EKG during this admission Given complaints and ill-defined episodes will plan on placing Linq event monitor tomorrow N.p.o. after midnight Discussed with patient who is agreeable 05/31/2024 No arrhythmias noted on telemetry. Symptoms unchanged Event monitor to be inserted with Linq recorder today for long-term assessment No other Admission and Anticipated Discharge Date Admission Date: May 28, 2024 Subjective Patient seen and examined, chart, medications, telemetry reviewed No cardiac complaints or arrhythmias overnight Hemodynamically stable with good oxygenation Physical Exam Constitutional: WD/WN, vitals as above no acute distress Eyes: PERRL, conjunctivae normal, anicteric sclerae ENMT: external ear and nose normal, oropharynx normal Neck: trachea midline, no thyromegaly Respiratory: normal respiratory effort, lungs clear to auscultation Cardiovascular: Rate/Rhythm: regular rate and regular rhythm Heart Sounds: normal S1 and normal S2; no gallop and no murmur Palpation: normal PMI Vessels: normal carotid upstroke and radial pulses present; no JVD and no c arotid bruit Extremities: no edema Gastrointestinal (Abdomen): normal bowel sounds, soft, nontender, no hepatosplenomegaly Musculoskeletal: no cyanosis or clubbing, extremities motor strength 5/5 Skin: no rashes, warm and dry Neurologic: PERRL, EOMI, accommodation nl, no face palsy, no dysarthria Psychiatric: A+Ox3, euthymic affect Results & Data Vital Signs (Past 12 Hours) Vital Signs Temp Pulse Pulse Resp BP Pulse Ox O2 Del Method 05/31/24 11:46 77 18 111/72 99 Room Air 05/31/24 10:43 89 17 147/81 H 99 Room Air 05/31/24 07:48 36.8 C 65 18 126/77 99 Room Air 05/31/24 07:09 84 05/31/24 03:00 36.9 C 80 16 103/66 97 Room Air (2) Chest pain Chest pain type: unspecified Qualified Code(s): R07.9 - Chest pain, unspecified (3) Anemia Anemia type: unspecified type Qualified Code(s): D64.9 - Anemia, unspecified
--- NOTE | 2024-05-31 12:26 | CT Scan Report ---
CTA ANGIOGRAPHY OF THE HEAD CLINICAL HISTORY: Headache. Evaluate cerebral vasculature. COMPARISON STUDY: MRI of the brain May 28, 2024. Head CT May 29, 2024. TECHNIQUE: Helical axial images of the head were obtained following uneventful intravenous administr ation of 112 cc of Optiray. Sagittal and coronal reconstructions were viewed as well as maximal inten sity projections on an independent 3-D workstation. Automated exposure control was utilized for the study. A dose lowering technique was utilized adhering to the principles of ALARA. CT DOSE: 526.26 mGy.cm FINDINGS: No acute intracranial hemorrhage is identified on this contrast enhanced exam. The brain vo lume is normal. The ventricular system is normal. Basal cisterns are patent. There are no extra-axial collections. The bilateral M1, M2, A1 and A2 segments are patent. There is no intracranial aneurysm. The posterior circulation is intact. No stenoses are identified. Major dural sinuses are patent. IMPRESSION: Unremarkable CTA of the head. ACT 112: Negative or not required by law. Electronically signed by: Cole Matt M.D. 05/31/2024 12:24 PM
--- NOTE | 2024-05-31 12:37 | CT Scan Report ---
NECK CTA HISTORY: Headache. eval cerebral vasculature TECHNIQUE: Multiaxial CT images of the neck were performed following the intravenous administration o f contrast to evaluate the major cervical vessels. 3D/MIP images were also obtained. Sagittal and cor onal reformats were reviewed. All measurements were calculated based on NASCET criteria. A dose low ering technique was utilized adhering to the principles of ALARA. COMPARISON STUDY: None. FINDINGS: The aortic arch and proximal great vessels are widely patent. There is no significant sten osis, occlusion, or dissection identified within the bilateral common carotid, internal carotid, or v ertebral arteries. IMPRESSION: No significant stenosis, occlusion, or dissection identified within the carotid or vertebral arteries . ACT 112: Negative or not required by law. Electronically signed by: Franko Bolton M.D. 05/31/2024 12:36 PM
--- NOTE | 2024-05-31 14:20 | History & Physical Bridge Note ---
Date of Service May 31, 2024 History & Physical Bridge Note I have examined the patient, reviewed the History & Physical and in the interval since the performance of the History & Physical I have noted the following changes of clinical significance: pt admitted with syncope and recommended a loop recorder prior to hospital discharge; I discussed the procedure and potential risks of bleeding and infection-she expressed an understanding and consents signed.
[2024-05-31] MEDS: ceFAZolin 330 MG/ML 1 GM VIAL ONE (14:28)
--- NOTE | 2024-05-31 14:41 | Hospitalist Progress Note ---
Date of Service May 31, 2024 Assessment & Plan (1) Unresponsive episode: Plan: 38 yo F w/ PMH of PCOS, hyperinsulinemia, obesity, vitamin D deficiency, submucous leiomyoma of uterus, migraine, menorrhagia, iron deficiency anemia, family history of breast cancer, family history of ovarian cancer, family h/o epilepsy (in dtr and mother) comes because of unresponsive episode. Patient does not remember anything. She states her son found her in the house on the floor. She remembers going for a bike ride couple of hours prior to that. Do not remember coming back to the house. Patient states her son told her when he tried to wake her up, she woke up a couple of minutes later and again she felt dizzy and she blacked out for for another 10 minutes. EMS was called and again she was aroused and patient states after she was aroused was confused for about half an hour and then back to normal. No biting of her tongue and no incontinence. Patient states she had a similar episode in the past but not as long as this time. Has some headache. No blurred visions. No earache or runny nose or sore throat. No cough. No difficulty swallowing. Has some chest discomfort mostly in the left clavicular and shoulder region. No shortness of breath. No nausea. No abdominal pain. Normal bowel and bladder movements. Denies bloody or black stools. No recent heavy menses. Micturating okay. Prior to the episode she was ambulating fine and climbing steps fine. She is being managed for the following: Unresponsive episode Episodes as above, has h/o epilepsy in family, admitting CT Head and MRI brain w/ no acute findings. Per pt's , pt had another episode of unresponsiveness/shaking while in hospital around 730 pm 05/29, pt was evaled by nightteam and noted to be sleepy/following commands, no telemetric events noted around the time. Pt complaints of headache 05/30, she reports intermittent headache in the past. To rule out significant cardiac or neurological causes Trop x 1 neg, d-dimer wnl, EKG w/ sinus rhythm. CPK 61. ECHO w/ EF of 55-60%, no RWMA, no pHTN. Nl LV wall thickness. 05/29 EEG: This is a normal awake and drowsy routine EEG. There is no evidence of focal slowing or epileptiform activity. No significant arrhythmia noted on monitor Did not have any ACS Appreciate cardiology input and recommendation Will have event monitor placement this afternoon to rule out the possibility of any arrhythmia Admitting CT of the head and MRI of the head without any acute findings Appreciate neurology input and recommendation Status post LP without any significant findings so far EEG was unremarkable CTA of the head and neck are unremarkable Started on oral Diamox for possible intracranial hypertension Will have ophthalmology evaluation tomorrow Will also need to have an outpatient sleep study She will be discharged home this afternoon Complains of headache Has been going on for some time Has been using maximum doses of ibuprofen and Tylenol as an outpatient Headache has been worse in the hospital following lumbar puncture Will try small dose of narcotics Warned against possible side effects of narcotic pain medications Possible transient global amnesia vs possible seizures vs IIH vs meningitis vs cardiogenic syncope s/p LP 05/29: cytology wnl, chemistries either wnl or pending, serologies either neg or pending, Cx pending. Follow all final results. Chest discomfort Mostly left clavicle and shoulder region Chest x-ray and shoulder x-ray okay Troponin okay, echo and ekg as above. Episode could be possible syncope. Ortho vitals neg. c/w tele, appreciate cards eval. Low back pain: chronic but increased after LP on 05/29 per pt. no tenderness or erythema/swelling noted at LP site. pt on liset tylenol and diclo gel, prn oxy and dilaudid. bowel regimen liset and prn are on board, pt advised to utilized prn bowel regimen if she is not moving bowel. xr L spine w/ no acute findings. Likely Iron deficiency anemia Microcytic anemia ho FLORINDA and ho menorrhagia Admitting Hb 9.4, MCV 73.6. Pt denies any blood or black stools. Iron 30, transferrin % 10, Folate 11.57, B12 232 c/w 05/29 iron supplement, b12 and folate supplement repeat iron profile in 3 months, f/u pcp office. Pt and her made aware to have repeat labs in 3 months. f/u fobt. Monitor HnH DVT prophylaxis: SCDs for now Disposition: Telemetry Full code. Will be discharged home this afternoon Admission and Anticipated Discharge Date Admission Date: May 28, 2024 Subjective 05/31/2024 The patient was seen and examined in telemetry unit She has been complaining of some headache without any other associated symptoms She has had event monitor implanted this afternoon and she denies any symptoms at the site of the procedure She denies any other significant symptoms Review of Systems Review of Systems: All systems reviewed and are unremarkable except as noted below Physical Exam Physical Exam: Lying in bed without any acute distress Constitutional: well developed and well nourished; not ill appearing Eyes: PERRL, conjunctivae normal, anicteric sclerae ENMT: external ear and nose normal, oropharynx normal Neck: trachea midline, no thyromegaly Respiratory: no respiratory distress Auscultation: lungs clear to auscu ltation bilaterally Cardiovascular: Rate/Rhythm: regular rate and regular rhythm; not tachycardic Heart Sounds: normal S1 and normal S2; no murmur Extremities: no edema Gastrointestinal (Abdomen): Inspection/Auscultation: normal bowel sounds; abdomen not distended Percussion/Palpation: abdomen soft; abdomen nontender Musculoskeletal: No acute arthritis involving any of the joints Neurologic: normal touch/pain/proprioception and moves all extremities; no focal motor deficits Psychiatric: A+Ox3, euthymic affect Lymphatic: no cervical or axillary lymphadenopathy Results & Data Results & Data Vital Signs (Past 12 Hours) Vital Signs Temp Pulse Pulse Resp BP Pulse Ox O2 Del Method 05/31/24 14:29 60 05/31/24 13:49 36.8 C 70 18 120/83 96 Room Air 05/31/24 11:46 77 18 111/72 99 Room Air 05/31/24 10:43 89 17 147/81 H 99 Room Air 05/31/24 07:48 36.8 C 65 18 126/77 99 Room Air 05/31/24 07:09 84 05/31/24 03:00 36.9 C 80 16 103/66 97 Room Air Laboratory Results Short CBC 05/31/24 Range/Units 05:45 WBC 8.84 (4.8-10.8) K/ul Hgb 9.5 L (12.0-16.0) g/dl Hct 32.0 L (37.0-47.0) % Plt Count 424 H (130-400) K/uL BMP 05/31/24 05:45 Sodium 137 Potassium 4.0 Chloride 109 H Carbon Dioxide 24 BUN 10 Creatinine 0.66 Glucose 145 H Calcium 8.3 L Medications Administered Current Inpatient Medications Acetaminophen (Acetaminophen 325 Mg Tab) 650 mg PO Q6H [facility] Stop: 06/02/24 09:59 Last Admin: 05/31/24 08:56 Dose: 650 mg Acetazolamide (Acetazolamide 250 Mg Tab) 500 mg PO BIDM [facility] Stop: 06/29/24 14:59 Last Admin: 05/31/24 08:52 Dose: 500 mg Aspirin (Aspirin 81 Mg Ectab) 81 mg PO Q48H [facility] Stop: 06/28/24 08:59 Last Admin: 05/31/24 08:53 Dose: 81 mg Cyanocobalamin (Cyanocobalamin (B-12) 500 Mcg Tablet) 500 mcg PO [facility] Stop: 06/28/24 08:59 Last Admin: 05/31/24 08:54 Dose: 500 mcg Diclofenac Sodium (Diclofenac Sod 1% Gel 100 Gm Tube) 2 gm EXT Q6H [facility]; Protocol Stop: 06/29/24 09:59 Last Admin: 05/31/24 10:54 Dose: Not Given Ferrous Sulfate (Ferrous S[facility]ate 325 Mg Tab) [facility] Stop: 06/28/24 11:34 Last Admin: 05/31/24 08:53 Dose: 325 mg Folic Acid (Folic Acid 1 Mg Tab) 1 mg PO [facility] Stop: 06/28/24 08:59 Last Admin: 05/31/24 08:55 Dose: 1 mg Hydromorphone HCl (Hydromorphone Inj 0.5 Mg/0.5 Ml Syr) 0.25 mg IV Q4H PRN PRN Reason: pain not relieved by oxycodone Stop: 06/12/24 17:29 Last Admin: 05/31/24 11:43 Dose: 0.25 mg Sodium Chloride (Nss) 1,000 mls @ 100 mls/hr IV .Q10H [facility] Stop: 06/27/24 22:03 Last Infusion: 05/31/24 13:32 Dose: 0 mls/hr Nitroglycerin (Nitroglycerin Sl 0.4 Mg/Tab Tab) 0.4 mg SL Q5M PRN PRN Reason: Chest Pain Stop: 06/27/24 22:03 Ondansetron HCl (Ondansetron Inj 2 Mg/Ml 2 Ml Vial) 4 mg IV Q6H PRN PRN Reason: Nausea And Vomiting Stop: 06/28/24 15:38 Oxycodone HCl (Oxycodone Hcl Ir 5 Mg Tab (Immediate Release)) 5 mg PO Q6H PRN PRN Reason: Severe Pain (Scale 7, 8, 9,10) Stop: 06/12/24 12:39 Last Admin: 05/31/24 10:50 Dose: 5 mg Polyethylene Glycol (Polyethylene (Miralax) 17 Gm Pack) 17 gm PO DAILY PRN PRN Reason: Constipation Stop: 06/27/24 22:03 Senna/Docusate Sodium (Docusate Sodium/Senna 50/8.6mg Tab) [facility] Stop: 06/29/24 09:59 Last Admin: 05/31/24 08:54 Dose: Not Given
[2024-05-31] MEDS: LIDOCAINE 1% LOCAL 20 ML VIAL ONE (15:13)
[2024-05-31 15:43] VITALS: PULSE 58; O2SAT 98
[2024-05-31 16:06] VITALS: BP 120/83
--- NOTE | 2024-06-01 07:40 | Discharge Summary ---
Date of Service June 01, 2024 Admission HPI Per Admitting Provider 38-year-old female with past medical history significant for PCOS, hyperinsulinemia, obesity, vitamin D deficiency, submucous leiomyoma of uterus, history of migraine, history of menorrhagia, history of iron deficiency anemia, family history of breast cancer, family history of ovarian cancer comes because of unresponsive episode. Patient does not remember anything. She states her son found her in the house on the floor. She numbers going for a bike ride couple of hours prior to that. Do not remember coming back to the house. Patient states her son told her when he tried to wake her up,she woke up a couple of minutes later and again she felt dizzy and she blacked out for for another 10 minutes. EMS was called and again she was aroused and patient states after she was aroused was confused for about half an hour and then back to normal. No biting of her tongue and no incontinence. Patient states she had a similar episode in the past but not as long as this time. Has some headache. No blurred visions. No earache or runny nose or sore throat. No cough. No difficulty swallowing. Has some chest discomfort mostly in the left clavicular and shoulder region. No shortness of breath. No nausea. No abdominal pain. Normal bowel and bladder movements. Denies bloody or black stools. No recent heavy menses.Micturating okay. Prior to the episode she was ambulating fine and climbing steps fine. Currently hemodynamics are okay and resting comfortably. Past medical history. As mentioned above Past surgical history. . Ligation of oviducts. Social history. No smoking. No alcohol use. No drug use. Family history. Maternal grandmother had breast cancer and ovarian cancer in her 40s. Mother had breast cancer age 31. Mother had ovarian cancer in her early 40s. Mother had thyroid cancer. Sister had thyroid cancer. Admission Exam Per Admitting Provider Physical Exam: General- Not in acute distress Head- atraumatic Eyes- PERRL. ENT- oropharynx clear Neck- supple, no JVD. Lungs- clear to auscultation no wheezing or crackles Heart- regular rate and rhythm; no murmur, no gallop. Abdomen- normal bowel sounds, soft, nontender, no distension. Extremities- no pretibial edema, no erythema seen Neuro- alert, oriented PERRL, no facial palsy; no dysarthria; motor 5/5 bilaterally; no pronator drift, sensations and positions sense intact Skin- warm & dry Principal Diagnosis Unresponsive episode, microcytic anemia, headache Discharge Exam Lying in bed without any acute distress Constitutional well developed and well nourished; not ill appearing Eyes PERRL, conjunctivae normal, anicteric sclerae ENMT external ear and nose normal, oropharynx normal Neck trachea midline, no thyromegaly Respiratory no respiratory distress Auscultation: lungs clear to auscultation bilaterally Cardiovascular Rate/Rhythm: regular rate and regular rhythm; not tachycardic Heart Sounds: normal S1 and normal S2; no murmur Extremities: no edema Gastrointestinal (Abdomen) Inspection/Auscultation: normal bowel sounds; abdomen not distended Percussion/Palpation: abdomen soft; abdomen nontender Neurologic normal touch/pain/proprioception and moves all extremities; no focal motor deficits Psychiatric A+Ox3, euthymic affect Lymphatic no cervical or axillary lymphadenopathy Discharge Data Allergies Allergy/AdvReac Type Severity Reaction Status Date / Time iodine Allergy Intermediate Hives Verified 05/28/24 19:41 latex Allergy Intermediate Hives Verified 05/28/24 19:41 Consultations 05/28/24 19:42 ED Decision to Admit Stat 05/29/24 08:00 Consult Cardiology Routine Consult Neurology Routine Procedures Performed Operation Date: 05/31/24 12:30 Actual Procedures p Implant Cardiac Event Recorder - Leslie Saldana DO Ordered Studies 05/28/24 18:48 CT head/brain wo con Stat 05/28/24 22:04 MRI Brain [MR brain wo/w con] Urgent 05/29/24 11:43 IR lumbar puncture diagnostic Routine 05/29/24 19:[address] [CT head/brain wo con] Stat 05/31/24 09:00 CTA head w con [CT angio head w con] Routine CTA neck with con [CT angio neck with con] Routine Hospital Course (1) Unresponsive episode: 38 yo F w/ PMH of PCOS, hyperinsulinemia, obesity, vitamin D deficiency, submucous leiomyoma of uterus, migraine, menorrhagia, iron deficiency anemia, family history of breast cancer, family history of ovarian cancer, family h/o epilepsy (in dtr and mother) comes because of unresponsive episode. Patient does not remember anything. She states her son found her in the house on the floor. She remembers going for a bike ride couple of hours prior to that. Do not remember coming back to the house. Patient states her son told her when he tried to wake her up, she woke up a couple of minutes later and again she felt dizzy and she blacked out for for another 10 minutes. EMS was called and again she was aroused and patient states after she was aroused was confused for about half an hour and then back to normal. No biting of her tongue and no incontinence. Patient states she had a similar episode in the past but not as long as this time. Has some headache. No blurred visions. No earache or runny nose or sore throat. No cough. No difficulty swallowing. Has some chest discomfort mostly in the left clavicular and shoulder region. No shortness of breath. No nausea. No abdominal pain. Normal bowel and bladder movements. Denies bloody or black stools. No recent heavy menses. Micturating okay. Prior to the episode she was ambulating fine and climbing steps fine. She is being managed for the following: Unresponsive episode Episodes as above, has h/o epilepsy in family, admitting CT Head and MRI brain w/ no acute findings. Per pt's , pt had another episode of unresponsiveness/shaking while in hospital around 730 pm 05/29, pt was evaled by nightteam and noted to be sleepy/following commands, no telemetric events noted around the time. Pt complaints of headache 05/30, she reports intermittent headache in the past. To rule out significant cardiac or neurological causes Trop x 1 neg, d-dimer wnl, EKG w/ sinus rhythm. CPK 61. ECHO w/ EF of 55-60%, no RWMA, no pHTN. Nl LV wall thickness. 05/29 EEG: This is a normal awake and drowsy routine EEG. There is no evidence of focal slowing or epileptiform activity. No significant arrhythmia noted on monitor Did not have any ACS Appreciate cardiology input and recommendation Will have event monitor placement this afternoon to rule out the possibility of any arrhythmia Admitting CT of the head and MRI of the head without any acute findings Appreciate neurology input and recommendation Status post LP without any significant findings so far EEG was unremarkable CTA of the head and neck are unremarkable Started on oral Diamox for possible intracranial hypertension Will have ophthalmology evaluation tomorrow Will also need to have an outpatient sleep study She will be discharged home this afternoon Complains of headache Has been going on for some time Has been using maximum doses of ibuprofen and Tylenol as an outpatient Headache has been worse in the hospital following lumbar puncture Will try small dose of narcotics Warned against possible side effects of narcotic pain medications Possible transient global amnesia vs possible seizures vs IIH vs meningitis vs cardiogenic syncope s/p LP 05/29: cytology wnl, chemistries either wnl or pending, serologies either neg or pending, Cx pending. Follow all final results. Chest discomfort Mostly left clavicle and shoulder region Chest x-ray and shoulder x-ray okay Troponin okay, echo and ekg as above. Episode could be possible syncope. Ortho vitals neg. c/w tele, appreciate cards eval. Low back pain: chronic but increased after LP on 05/29 per pt. no tenderness or erythema/swelling noted at LP site. pt on liset tylenol and diclo gel, prn oxy and dilaudid. bowel regimen liset and prn are on board, pt advised to utilized prn bowel regimen if she is not moving bowel. xr L spine w/ no acute findings. Likely Iron deficiency anemia Microcytic anemia ho FLORINDA and ho menorrhagia Admitting Hb 9.4, MCV 73.6. Pt denies any blood or black stools. Iron 30, transferrin % 10, Folate 11.57, B12 232 c/w 05/29 iron supplement, b12 and folate supplement repeat iron profile in 3 months, f/u pcp office. Pt and her made aware to have repeat labs in 3 months. f/u fobt. Monitor HnH DVT prophylaxis: SCDs for now Disposition: Telemetry Full code. Will be discharged home this afternoon Total Time Total Time Spent Total Time Spent (In Minutes): 40 minutes Discharge Plan Discharge Items Patient Disposition: Home - Self-Care Reason For Visit: UNRESPONSIVE EPISODE Discharge Diagnosis: Unresponsive episode, microcytic anemia, headache Condition on Discharge: Fair Activity: Resume your previous activity Lifting: None Bathing: Keep incision dry Bathing Comment: can shower tomorrow let water run over the incision Non-emergency contact: Primary Care Provider Call non-emergency contact if: you have any medication questions and your symptoms worsen Follow-up/Referrals: Anthony Brady MD [Physician] - (The Cardiology office will contact you for a follow up appointment. ) Leslie Ace PA-C [Physician Qual Field Manager] - (Date & Time 06/28/2024 11:20 AM Provider Leslie Ace PA-C Department Neurology [facility] ) Ramesh Sheriff DO [Physician] - 06/01/24 2:30 pm ([facility] [address], [place] [address] *Please bring a photo ID and insurance card to the appointment*) Delaney Celaya MD [Outside Practitioners] - (Date & Time 06/05/2024 11:40 AM Provider Delaney Celaya MD Department [facility] ) Diet: Heart Healthy Addtl Attending Provider Instructions: Device and wound check at [facility] Cardiology next week Please take precautions to avoid falls Take Tylenol and/or ibuprofen for your headache Try to use less of narcotic pain medications as it can cause addiction, confusion and constipation You are not allowed to drive until being cleared by the neurologist Please keep follow-up appointments with your healthcare providers Pending Studies at Discharge: Yes (Studies from ) Stand-Alone Forms: [facility], Work/School Release, Smoking Cessation Medications and DC Order Prescriptions: New acetazolamide 250 mg Tablet 500 mg PO BIDM Qty: 30 0RF cyanocobalamin (vitamin B-12) 500 mcg Tablet 500 mcg PO QAM Qty: 30 0RF folic acid 1 mg Tablet 1 mg PO QAM Qty: 30 0RF ferrous sulfate 325 mg (65 mg iron) Tablet,Delayed Release (Dr/Ec) 325 mg PO BIDM Qty: 60 0RF oxycodone 5 mg Tablet 5 mg PO Q6H PRN (Reason: pain) Qty: 12 0RF diclofenac sodium [Voltaren Arthritis Pain] 1 % Gel 2 g EXT Q6H Qty: 30 0RF Continued acetaminophen 500 mg Tablet 500 - 1,000 mg PO Q6H PRN (Reason: PAIN/FEVER) naproxen sodium [Aleve] 220 mg Tablet 220 mg PO BID PRN (Reason: Pain) aspirin 81 mg Tablet,Delayed Release (Dr/Ec) 81 mg PO Q OTHER DAY Discharge Orders: Discharge Order (Routine); Ordered 05/31/24 Ordered By: Shai Beasley Admission Data Admit Date/Time: 05/28/24 21:14 Attending Provider: Shai Beasley Admit Provider: Roland Proctor Primary Care Provider: PCP,JENNIFER Other Providers: Roland Proctor; Snow Sung; Rajesh Palma; Anthony Brady; Deni Monroe; Manjit Ruvalcaba; Keegan Mendieta; Dina Mahajan; Leslie Saldana; Leia Menchaca; Snow Corrales; Marcell Contreras; Chau Bernabe; Manju Pope; Mylene Vogel; Mildred Lipscomb; Vernon Lezama; Shant Romero; Lilian Noel; Leslie Ace; Randy Salomon; Leslie Block; Lacho Cho; Tacos Luna; Jayden Crawford; Damaso Quiles; Danielle Preciado; Jemal Ac; Matt Farfan; Belkis Palencia; Yovani Mendez; Shalini Weinberg; Lindsey Canas; Damaso Jefferson; Fior Horne Other Interventions: Discharge Summary Assessment (RN) Last Done: 05/31/24 16:01
[2024-06-03 13:18] LABS: CSF, LDH 17 U/L (<=25); VDRL Qualitative CSF Nonreactive (Nonreactive)
[2024-06-06 07:55] LABS: EBV DNA Quant PCR Not Detected
[2024-06-08 14:33] LABS: Cryptococcal Antigen Not Detected (Not Detected); Lyme DNA PCR CSF or Synovial Not Detected (Not Detected); Lyme DNA Source CSF; Lyme IgG Band Pattern CSF DNR; Lyme IgG CSF NO BANDS DETECTED; Lyme IgM Band Pattern CSF DNR; Lyme IgM CSF NO BANDS DETECTED; Source CSF; West Nile Virus, PCR Source CSF; West Nile Virus, PCR, CSF NOT DETECTED (NOT DETECTED)
--- NOTE | 2024-06-14 14:16 | Operative Report ---
Post Operative Report Pre-OP diagnosis: syncope, SB Post Op Diagnosis: Same Procedure: Loop Recorder implant DOS: 05/31/2024 Surgeon: Dr. Saldana Anesthesia: 12cc 1% lidocaine Blood Loss: 3 cc Complications: None Condition: Stable Abx: ancef Specimen: None Indications: 38yo F with no significant PMH but had a berhane syncopal episode prompting admission to [facility]. Due to patient's syncope she was recommended a Loop insertion prior to hospital discharge. Description of procedure: Pt was brought into the procedure room and connected to cardiac monitoring. A time out was performed identifying patient and procedure correctly. The pt received antibiotic prior to incision. The patient was prepped and draped in a sterile fashion over the left sternal border. Then 12 cc of 1% lidocaine where given in the 4th intercostal space to the left of the sternal border. Then using the Loop insertion tool and kit the loop was inserted. Then a 4.0 vicryl interrupted suture followed by a running stitch was placed to approximate the incision and dermabond was placed. Equipment: New Device: Squirrot IQ EL+ [id number] SN: [id number] Parameters: Tachy 160bpm 12 beats Daniel 40bpm for 4 beats Pause: 4 seconds Implant Measurements: R waves 0.51mV Impression: Successful new Loop recorder insertion due to syncope Plan: Return to telemetry Device and wound check next week
== END 2024-05-31 17:50 | disposition home or self-care (01) | DRG 42 ==
LOC: ED 18:38 → SUATTDRO 21:14 → 2E 21:14